=== PATIENT | female | born 1980 | race Caucasian/White ===

== ENCOUNTER 2016-12-03 21:42 | Emergency (ER) | payer MEDICARE, OTHER ==
[~2016-12-03] VITALS: Ht 152.4 cm; Wt 117.9 kg
[~2016-12-03 21:42] MED LIST: AMOX500C2 PO; CLAR500T PO; FURO40SO PO; INSU100V SQ; INSU10VI4 SQ; LIRA0.6P SQ; LISI-603 PO; METO25TA6 PO; METO50TA3 PO; METR-105 PO; NPH,100V2 SQ; OMEP40CA37 PO; ONDA-25 PO
[2016-12-03] MEDS ORDERED: DEXAMETHASONE SOD PHOSPHATE 10 MG/ML VIAL ONE (22:19)
[2016-12-03] MEDS ORDERED: ONDANSETRON 4 MG TAB.RAPDIS ONE (22:19)
[2016-12-03] MEDS ORDERED: ONDANSETRON 4 MG TAB.RAPDIS SL ONE (22:30)
[2016-12-03] MEDS ORDERED: DEXAMETHASONE SOD PHOSPHATE 4 MG/ML VIAL IM ONE (22:30)
[2016-12-03 23:14] VITALS: BP 175/73
== END 2016-12-03 23:15 | disposition home or self-care (01) ==
LOC: ER 21:45
DX: R11.0 Nausea (principal); J02.9 Acute pharyngitis, unspecified; E11.9 Type 2 diabetes mellitus without complications; I10 Essential (primary) hypertension; Z79.4 Long term (current) use of insulin; Z88.1 Allergy status to other antibiotic agents
CPT/HCPCS: A4606; J1100; Q0162; Z7610

== ENCOUNTER 2017-03-19 13:10 | Inpatient (IN) | payer MEDICARE, MEDICAID ==
[~2017-03-19] VITALS: Ht 149.9 cm; Wt 118.4 kg
--- NOTE | 2017-03-19 13:10 | NUR ---
PATIENT WAS ADVISED TO GO TO ED FOR HEPATITS PANEL FOR [facility] ACCEPTANCE. PT WAS NOT DIALYZED YESRTERDAY. HD SHUNT SHOWS NO ACTIVE BLEEDING. + BRUIT AND + THRILL
[2017-03-19 14:42] LABS: BASOPHILS # (AUTO) 0.3 /CMM (0.0-0.2); BASOPHILS % (AUTO) 2.7 % (0.0-2.0); EOSINOPHILS # (AUTO) 0.9 /CMM (0.0-0.7); EOSINOPHILS % (AUTO) 9.8 % (0.0-6.0); HEMATOCRIT 27 % (33-45); HEMOGLOBIN 8.9 g/dL (11.5-14.8); LYMPHOCYTES # (AUTO) 2.2 /CMM (0.8-4.8); LYMPHOCYTES % (AUTO) 22.7 % (20.0-44.0); MEAN CORPUSCULAR HEMOGLOBIN 34 PG (26.0-33.0); MEAN CORPUSCULAR HGB CONC 33 g/dl (31.0-36.0); MEAN CORPUSCULAR VOLUME 103 fL (82-100); MONOCYTES # (AUTO) 0.4 /CMM (0.1-1.30); MONOCYTES % (AUTO) 4.7 % (2.0-12.0); NEUTROPHILS # (AUTO) 5.8 /CMM (1.8-8.9); NEUTROPHILS % (AUTO) 60.1 % (43.0-81.0); PLATELET COUNT (AUTO) 300 /CMM (150-450); RDW COEFFICIENT OF VARIATION 14.4 (11.5-15.0); RED BLOOD CELL COUNT(AUTO) 2.62 MIL/uL (4.0-5.2); WHITE BLOOD COUNT (AUTO) 9.6 K/uL (4.3-11.0)
[2017-03-19 15:01] LABS: CALCIUM, SERUM 7.6 mg/dL (8.5-10.1); POTASSIUM 6.2 mmol/L (3.5-5.1)
[2017-03-19 15:03] LABS: CREATININE 12.9 mg/dL (0.6-1.3)
[2017-03-19] MEDS ORDERED: SODIUM POLYSTYRENE SULFONATE 15 G/60 ML BOTTLE ONE (15:16)
--- NOTE | 2017-03-19 15:16 | NUR ---
CALLED [facility] NEPHROLOGY DR BLUM WAS PAGED.
[2017-03-19] MEDS ORDERED: DEXTROSE 50%-WATER 50 ML DISP.SYRIN ONE (15:17)
[2017-03-19] MEDS ORDERED: INSULIN REGULAR, HUMAN 100 UNIT/ML 10 ML VIAL ONE (15:17)
[2017-03-19] MEDS ORDERED: FURO40TA5 PO (15:22)
[2017-03-19] MEDS ORDERED: EXEN2PEN SQ (15:22)
[2017-03-19] MEDS ORDERED: CLON0.1T PO (15:22)
[2017-03-19] MEDS ORDERED: CALC667C6 PO (15:22)
[2017-03-19] MEDS ORDERED: METO200T35 PO (15:22)
[2017-03-19] MEDS ORDERED: SEVE800T8 PO (15:22)
[2017-03-19] MEDS ORDERED: EZET10TA PO (15:22)
[2017-03-19] MEDS ORDERED: FOLI0.8T23 PO (15:23)
[2017-03-19] MEDS ORDERED: ALBUTEROL FS 2.5 MG/3 ML VIAL.NEB NEB ONE (15:30)
[2017-03-19] MEDS ORDERED: SODIUM POLYSTYRENE SULFONATE 15 G/60 ML BOTTLE PO ONE (15:30)
[2017-03-19] MEDS ORDERED: INSULIN REGULAR, HUMAN 100 UNIT/ML 10 ML VIAL IV ONE (15:30)
[2017-03-19] MEDS ORDERED: DEXTROSE 50%-WATER 50 ML DISP.SYRIN IV ONE (15:30)
[2017-03-19] MEDS ORDERED: ALBUTEROL FS 2.5 MG/3 ML VIAL.NEB ONE (15:41)
--- NOTE | 2017-03-19 15:42 | NUR ---
GABRIELLA RT AT [facility]
--- NOTE | 2017-03-19 15:49 | NUR ---
REPORT GIVEN TO ELIZABETH GUERRERO FOR DIEUDONNE
[2017-03-19 16:00] VITALS: BP 179/84
--- NOTE | 2017-03-19 16:04 | NUR ---
MS RN INITIAL NOTES REPORT RECEIVED FROM ER AND PATIENT IN THE ROOM. NO SOB OR DISTRESS NOTED AT THIS TIME. PATIENT DENIES PAIN. PATIENT ORIENTED TO ROOM AND CALL LIGHT. HISTORY TAKEN FROM PATIENT. PATIENT REFUSES A FULL SKIN ASSESSMENT, BUT STATES HER SKIN IS INTACT. PATIENT IS FULLY AMBULATORY AND ALERT. BED IN A LOW POSITION, CALL LIGHT WITHIN PATIENT REACH. WILL CONTINUE TO MONITOR.
[2017-03-19] MEDS: LISINOPRIL (20MG) 20 MG TABLET PO SCH (16:32)
[2017-03-19] MEDS: FUROSEMIDE 40 MG TABLET PO SCH (17:00)
[2017-03-19] MEDS ORDERED: DEXTROSE 50%-WATER 50 ML DISP.SYRIN IV PRN (17:00)
[2017-03-19] MEDS: METOPROLOL SUCCINATE 50 MG TAB.SR.24H PO SCH (17:05)
--- NOTE | 2017-03-19 17:07 | NUR ---
RN NOTES WILL HOLD EVENING BP MEDS AND LASIX PATIENT WILL HAVE DIALYSIS WITHIN THE HOUR.
[2017-03-19] MEDS: INSULIN REGULAR, HUMAN 100 UNIT/ML 3 ML VIAL SQ PRN ×2 (17:08→21:21)
[2017-03-19] MEDS: SEVELAMER CARBONATE 800 MG TABLET PO SCH (17:49)
[2017-03-19] MEDS: BLOOD SUGAR DIAGNOSTIC 1 EACH STRIP IN SCH ×2 (17:49→21:22)
[2017-03-19] MEDS: CALCIUM ACETATE 667 MG TABLET PO SCH (17:49)
[2017-03-19] MEDS: VIT B CMPLX 3/FA/VIT C/BIOTIN 1 TAB TABLET PO SCH (17:49)
--- NOTE | 2017-03-19 17:49 | NUR ---
ELIZABETH NOTES PATIENT CURRENTLY UNDERGOING DIALYSIS. WISHES TO EAT AND HAVE INSULIN AFTER TREATMENT. WILL HOLD UNTIL PATIENT EATS. Addendum: 03/19/17 at 1751 by YOLANDA MERINO RN DIALYSIS EXPECTED TO FINISH AFTER 1900. WILL ENDORSE INSULIN IF NOT ON THIS SHIFT.
[2017-03-19] MEDS ORDERED: CALCIUM ACETATE 667 MG TABLET PO SCH (18:00)
--- NOTE | 2017-03-19 18:52 | NUR ---
MS RN CLOSING NOTES NO SIGNIFICANT CHANGES IN PATIENT CONDITION. NO SOB OR DISTRESS NOTED AT THIS TIME. PATIENT DENIES PAIN. PATIENT STILL ON DIALYSIS. WILL ENDORSE INSULIN TO PENETRATION TESTER RN.
[2017-03-19 20:19] VITALS: BP 154/85
[2017-03-19] MEDS: INS LISP PROT/INS LISPRO 75/25 100 UNIT/ML VIAL SQ SCH (20:22)
--- NOTE | 2017-03-19 20:30 | NUR ---
MS RN NOTE: PATIENT RESTING IN BED, NO ACUTE DISTRESS NOTED. BREATHING EVEN AND UNLABORED, NO SOB NOTED. IV TO RIGHT HAND IN PLACE. DARINEL AV FISTULA IN PLACE, NO BLEEDING NOTED. PATIENT FINISHED DIALYSIS WITH 2 LITERS OUT. PATIENT BLOOD SUGAR LEVEL 333 MG/DL, PATIENT TO RECEIVE 30 UNITS OF HUMALOG 75/25 PER MD ORDER. PATIENT ALSO TO RECEIVE 8 UNITS OF INSULIN PER SLIDING SCALE. NO S/S OF HYPER/HYPOGLYCEMIA NOTED. BED LOCKED AND IN LOWEST POSITION, CALL LIGHT IN REACH. WILL CONTINUE TO MONITOR.
[2017-03-20] MEDS: BLOOD SUGAR DIAGNOSTIC 1 EACH STRIP IN SCH ×4 (07:30→21:15)
--- NOTE | 2017-03-20 07:30 | NUR ---
MS RN AM NOTES PT IN BED, ASLEEP, AROUSES TO NAME AND TOUCH, AOX4, ON RA, NOT IN ANY DISTRESS, NO SOB. DENIES PAIN. RT HAND G20 IV ACCESS FLUSHES WELL, SITE CLEAR. DARINEL AV FISTULA IN PLACE, THRILL PRESENT. ON CCHO/RENAL DIET. AMBULATES WITH ASSIST. CALL LIGHT WITHIN REACH. SAFETY MEASURES IN PLACE. WILL CONT TO MONITOR.
[2017-03-20 07:35] LABS: BASOPHILS % (AUTO) 0.4 % (0.0-2.0); EOSINOPHILS # (AUTO) 0.9 /CMM (0.0-0.7); EOSINOPHILS % (AUTO) 10.4 % (0.0-6.0); HEMATOCRIT 28 % (33-45); HEMOGLOBIN 9.2 g/dL (11.5-14.8); LYMPHOCYTES # (AUTO) 2.3 /CMM (0.8-4.8); LYMPHOCYTES % (AUTO) 25.6 % (20.0-44.0); MEAN CORPUSCULAR HEMOGLOBIN 35 PG (26.0-33.0); MEAN CORPUSCULAR HGB CONC 33 g/dl (31.0-36.0); MEAN CORPUSCULAR VOLUME 103 fL (82-100); MONOCYTES # (AUTO) 0.6 /CMM (0.1-1.30); MONOCYTES % (AUTO) 6.5 % (2.0-12.0); NEUTROPHILS # (AUTO) 5.2 /CMM (1.8-8.9); NEUTROPHILS % (AUTO) 57.1 % (43.0-81.0); PLATELET COUNT (AUTO) 265 /CMM (150-450); RDW COEFFICIENT OF VARIATION 14.9 (11.5-15.0); RED BLOOD CELL COUNT(AUTO) 2.66 MIL/uL (4.0-5.2)
[2017-03-20 07:41] LABS: CALCIUM, SERUM 7.8 mg/dL (8.5-10.1); PHOSPHORUS 5.7 mg/dL (2.5-4.9); POTASSIUM 4.4 mmol/L (3.5-5.1)
[2017-03-20 08:00] VITALS: BP 170/74
[2017-03-20] MEDS: INS LISP PROT/INS LISPRO 75/25 100 UNIT/ML VIAL SQ SCH ×3 (08:00→17:33)
[2017-03-20] MEDS: LISINOPRIL (20MG) 20 MG TABLET PO SCH (09:00)
[2017-03-20] MEDS: FUROSEMIDE 40 MG TABLET PO SCH ×2 (09:00→17:26)
--- NOTE | 2017-03-20 09:30 | NUR ---
MS RN NOTE ADMINISTERED DUE MED.
[2017-03-20 10:07] LABS: CREATININE 9.9 mg/dL (0.6-1.3)
[2017-03-20] MEDS: CLONIDINE HCL 0.1 MG TABLET PO SCH (10:07)
[2017-03-20] MEDS: VIT B CMPLX 3/FA/VIT C/BIOTIN 1 TAB TABLET PO SCH (10:07)
[2017-03-20] MEDS: CALCIUM ACETATE 667 MG TABLET PO SCH ×3 (10:08→17:27)
[2017-03-20] MEDS: SEVELAMER CARBONATE 800 MG TABLET PO SCH ×3 (10:08→17:27)
[2017-03-20] MEDS: EZETIMIBE 10 MG TABLET PO SCH (10:11)
[2017-03-20] MEDS ORDERED: EPOETIN ALFA (10,000 UNIT) 10,000 UNIT/ML VIAL IV ONE (11:00)
--- NOTE | 2017-03-20 11:15 | NUR ---
MS RN NOTES ACCUCHECK DONE. BS 125 MG/DL. NO INSULIN COVERAGE GIVEN AT THIS TIME.
[2017-03-20] MEDS ORDERED: ACETAMINOPHEN 325 MG TABLET PO PRN (11:30)
--- NOTE | 2017-03-20 11:41 | NUR ---
MS RN NOTES HD COMPLETED 1.2 LITER OUT. EPOGEN ADMINISTERED WITH HD PER DR. BLUM.
[2017-03-20 16:00] VITALS: BP 159/93
[2017-03-20] MEDS: METOPROLOL SUCCINATE 50 MG TAB.SR.24H PO SCH (17:27)
--- NOTE | 2017-03-20 17:31 | NUR ---
MS RN NOTES ACCUCHECK DONE. BS 247 MG/DL. ADMINISTERED SCHEDULED HUMALOG 30 UNITS + HUM R 4 UNITS PER SLIDING SCALE.
[2017-03-20] MEDS: INSULIN REGULAR, HUMAN 100 UNIT/ML 3 ML VIAL SQ PRN ×2 (17:34→21:21)
[2017-03-20 18:00] VITALS: BP 156/77
--- NOTE | 2017-03-20 18:38 | NUR ---
MS RN CLOSING NOTES PT RESTING IN BED, AAO X 4, ON RA, NOT IN ANY DISTRESS, NO SOB. DENIES PAIN. RT HAND G20 IV ACCESS FLUSHES WELL, SITE CLEAR. DARINEL AV FISTULA IN PLACE, THRILL PRESENT. ON CCHO/RENAL DIET. AMBULATES WITH ASSIST. ALL NEEDS MET. NO OTHER SIGNIFICANT CHANGE IN CONDITION. CALL LIGHT WITHIN REACH. SAFETY MEASURES IN PLACE. WILL ENDORSE TO NEXT SHIFT FOR DIEUDONNE.
--- NOTE | 2017-03-20 19:30 | NUR ---
MS NR OPENING NOTES: PATIENT IN BED, AOX4, ON ROOM AIR, BREATHING EVEN AND UNLABORED. BREATH SOUNDS CLEAR BUT DIMINISHED AT LOWER LUNG [place]. APPEARS CALM AND IN NO DISTRESS, DENIES PAIN. PIV OVER R HAND G 20 INTACT AND PATENT TO FLUSH. DARINEL AV FISTULA WITH PALPABLE THRILLS. PROVIDED FOR COMFORT AND SAFETY. WILL CONT TO MONITOR.
[2017-03-20 20:00] VITALS: BP 131/67
--- NOTE | 2017-03-20 21:50 | NUR ---
RN NOTES: PATIENT COMPLAINED OF NAUSEA, BUT WITHOUT VOMITING. SHE STATES HAVING ONE EPISODE OF VOMITING SMALL AMOUNT OF FOOD EARLIER AFTER DINNER. PATIENT STILL COMPLAINING OF NAUSEA. CALLED DR KOEHLER
--- NOTE | 2017-03-20 22:15 | NUR ---
RN NOTES: RECEIVED CALL BACK FROM DR KOEHLER, ORDERED FOR ZOFRAN 4 MG IV PRN FOR NAUSEA AND VOMITING.
[2017-03-20] MEDS ORDERED: ONDANSETRON HCL/PF 4 MG/2 ML VIAL ONE (22:29)
[2017-03-20] MEDS ORDERED: ONDANSETRON HCL/PF 4 MG/2 ML VIAL IV PRN (22:30)
--- NOTE | 2017-03-21 06:00 | NUR ---
RN NOTES: BLOOD SUGAR CHECKED AT 122 MG/DL. NO INSULIN COVERAGE NEEDED AT THIS TIME.
[2017-03-21] MEDS: BLOOD SUGAR DIAGNOSTIC 1 EACH STRIP IN SCH ×2 (06:47→11:57)
--- NOTE | 2017-03-21 06:49 | NUR ---
MS RN CLOSING NOTES: PATIENT IN BED, AOX4, ON ROOM AIR, BREATHING EVEN AND UNLABORED. APPEARS CALM AND IN NO DISTRESS. DARINEL AV FISTULA WITH PALPABLE THRILLS PRESENT. R HAND G 20 INTACT AND PATENT TO FLUSH. DUE MEDS GIVEN. PROVIDED FOR COMFORT AND SAFETY. WILL ENDORSE TO AM RN FOR DIEUDONNE.
--- NOTE | 2017-03-21 07:50 | NUR ---
RN MS NOTES RECEIVED PATIENT IN BED, NO APPARENT DISTRESS NOTED, DENIES PAIN, DENIES SOB. RIGHT HAND IV PATENT, DARINEL FISTULA PATENT. ALL NEEDS MET, CALL LIGHT WITHIN REACH.
[2017-03-21 08:00] VITALS: BP 126/92
[2017-03-21] MEDS: EZETIMIBE 10 MG TABLET PO SCH (08:32)
[2017-03-21] MEDS: CALCIUM ACETATE 667 MG TABLET PO SCH ×2 (08:32→12:33)
[2017-03-21] MEDS: FUROSEMIDE 40 MG TABLET PO SCH (08:32)
[2017-03-21] MEDS: CLONIDINE HCL 0.1 MG TABLET PO SCH (08:32)
[2017-03-21] MEDS: VIT B CMPLX 3/FA/VIT C/BIOTIN 1 TAB TABLET PO SCH (08:32)
[2017-03-21] MEDS: SEVELAMER CARBONATE 800 MG TABLET PO SCH ×2 (08:32→12:33)
[2017-03-21 08:33] VITALS: BP 126/92
[2017-03-21] MEDS: LISINOPRIL (20MG) 20 MG TABLET PO SCH (08:33)
[2017-03-21] MEDS: INS LISP PROT/INS LISPRO 75/25 100 UNIT/ML VIAL SQ SCH ×2 (09:19→12:36)
[2017-03-21] MEDS: INSULIN REGULAR, HUMAN 100 UNIT/ML 3 ML VIAL SQ PRN (11:59)
--- NOTE | 2017-03-21 14:30 | NUR ---
ELIZABETH MS CLOSING NOTES PATIENT LEFT IN STABLE CONDITION VIA PRIVATE CAR. NO APPARENT DISTRESS NOTED, DENIES PAIN, DENIES SOB. ALL DUE MEDS GIVEN ALL NEEDS MET. DISCHARGE INSTRUCTIONS REVIEWED WITH PATIENT, SHE SATED UNDERSTANDING. MEDICATIONS REVIEWED WITH PATIENT WITH EDUCATION PROVIDED. SKIN CLEAR AND INTACT, IV LINE DISCONTINUED. EXIT CARE UTILIZED TO PROVIDE EDUCATIONAL MATERIAL. Addendum: 03/21/17 at 1450 by MOODY PONCE RN DARINEL FISTULA PATENT,BRUIT AND THRILL HEARD UPON AUSCULTATION
[2017-03-25] MEDS ORDERED: BYDUREON SQ SCH (09:00)
== END 2017-03-21 15:00 | disposition home or self-care (01) | DRG 682 ==
LOC: ER 13:13 → TELE 15:48 → MED 18:04
PROVIDERS: ADMIT Internal Medicine Nephrology; ATTEND Internal Medicine Nephrology
PROC: 5A1D60Z (ICD-10-PCS; principal; 2017-03-19)
DX: I13.11 Hypertensive heart and chronic kidney disease without heart failure, with stage 5 chronic kidney disease, or end stage renal disease (principal); N18.6 End stage renal disease; Z68.43 Body mass index [BMI] 50.0-59.9, adult; J81.1 Chronic pulmonary edema; E87.5 Hyperkalemia; Z86.19 Personal history of other infectious and parasitic diseases; Z88.1 Allergy status to other antibiotic agents; E11.22 Type 2 diabetes mellitus with diabetic chronic kidney disease; Z99.2 Dependence on renal dialysis; E66.01 Morbid (severe) obesity due to excess calories; D64.9 Anemia, unspecified; E78.5 Hyperlipidemia, unspecified; E83.51 Hypocalcemia; K21.9 Gastro-esophageal reflux disease without esophagitis; Z79.4 Long term (current) use of insulin; Z79.899 Other long term (current) drug therapy; M85.80 Other specified disorders of bone density and structure, unspecified site; Z91.15 Patient's noncompliance with renal dialysis
CPT/HCPCS: 36415; 71010-TC; 80048-TC; 80074; 82962-TC; 83540-TC; 84100-TC; 85025-TC; 87081-TC; 90935-TC; 93307-TC; A4606; A6402; J0885; J1815; J2405; Z7610

== ENCOUNTER 2017-04-24 10:59 | Emergency (ER) | payer MEDICARE, MEDICAID ==
[~2017-04-24] VITALS: Ht 149.9 cm; Wt 110.2 kg
[~2017-04-24 10:59] MED LIST changes: -AMOX500C2 PO; +CALC667C6 PO; -CLAR500T PO; +CLON0.1T PO; +EXEN2PEN SQ; +EZET10TA PO; +FOLI0.8T23 PO; -FURO40SO PO; +FURO40TA5 PO; -INSU100V SQ; -LIRA0.6P SQ; +METO200T35 PO; -METO25TA6 PO; -METO50TA3 PO; -METR-105 PO; -NPH,100V2 SQ; -OMEP40CA37 PO; -ONDA-25 PO; +SEVE800T8 PO
--- NOTE | 2017-04-24 10:59 | NUR ---
BB SELF C/O N/V X3 DAYS AND MIGRAINE X1 MONTH PROBATE CLERK. WENT TO PCP YESTERDAY GIVEN REGLAN NOT EFFECTIVE. ESRD ON DIALYSIS. PLACED ON MONITOR. AWAITING MD ORDER
[2017-04-24] MEDS ORDERED: ONDANSETRON HCL/PF 4 MG/2 ML VIAL IVP ONE (11:30)
[2017-04-24] MEDS ORDERED: IV NS 0.9% 500 ML BAG IV ONE (11:30)
--- NOTE | 2017-04-24 11:33 | NUR ---
URINE SAMPLE COLLECTED SENT TO LAB
--- NOTE | 2017-04-24 11:40 | NUR ---
BLOOD SAMPLE COLLECTED SENT TO LAB
--- NOTE | 2017-04-24 11:48 | NUR ---
EKG IN PROGRESS
[2017-04-24 11:51] LABS: BASOPHILS # (AUTO) 0.1 /CMM (0.0-0.2); BASOPHILS % (AUTO) 0.6 % (0.0-2.0); EOSINOPHILS # (AUTO) 0.8 /CMM (0.0-0.7); EOSINOPHILS % (AUTO) 8.8 % (0.0-6.0); HEMATOCRIT 30 % (33-45); HEMOGLOBIN 9.8 g/dL (11.5-14.8); LYMPHOCYTES # (AUTO) 1.6 /CMM (0.8-4.8); LYMPHOCYTES % (AUTO) 17.5 % (20.0-44.0); MEAN CORPUSCULAR HEMOGLOBIN 34 PG (26.0-33.0); MEAN CORPUSCULAR HGB CONC 33 g/dl (31.0-36.0); MEAN CORPUSCULAR VOLUME 102 fL (82-100); MONOCYTES # (AUTO) 0.5 /CMM (0.1-1.30); MONOCYTES % (AUTO) 5.5 % (2.0-12.0); NEUTROPHILS # (AUTO) 6.1 /CMM (1.8-8.9); NEUTROPHILS % (AUTO) 67.6 % (43.0-81.0); PLATELET COUNT (AUTO) 213 /CMM (150-450); RDW COEFFICIENT OF VARIATION 14.2 (11.5-15.0); RED BLOOD CELL COUNT(AUTO) 2.89 MIL/uL (4.0-5.2); WHITE BLOOD COUNT (AUTO) 9.1 K/uL (4.3-11.0)
[2017-04-24 12:03] LABS: CALCIUM, SERUM 7.6 mg/dL (8.5-10.1); POTASSIUM 5.8 mmol/L (3.5-5.1)
[2017-04-24 12:04] LABS: CREATININE 14.3 mg/dL (0.6-1.3)
[2017-04-24 12:07] LABS: INR 1.01 (0.87-1.13); PROTHROMBIN TIME 10.5 SECS (9.5-12.7)
[2017-04-24 12:08] LABS: ALBUMIN 3.3 g/dL (3.4-5.0); BILIRUBIN,DIRECT 0.1 mg/dL (0.0-0.2); BILIRUBIN,TOTAL 0.3 mg/dL (0.2-1.0); TOTAL PROTEIN, SERUM 7.2 g/dL (6.4-8.2)
[2017-04-24] MEDS ORDERED: ONDANSETRON 4 MG TAB.RAPDIS ONE ×2 (12:10→13:30)
--- NOTE | 2017-04-24 12:11 | NUR ---
UNABLE TO START IV ACCESS DUE TO HARDSTICK VERBAL ORDER FROM DR CAMP GIVE ZOFRAN 4MG ODT .
[2017-04-24 12:13] LABS: TROPONIN I 0.159 ng/mL (0.00-0.056)
--- NOTE | 2017-04-24 12:14 | NUR ---
PT TAKEN TO CT
[2017-04-24] MEDS ORDERED: ONDANSETRON 4 MG TAB.RAPDIS SL ONE ×2 (12:30→13:30)
[2017-04-24] MEDS ORDERED: CLONIDINE HCL 0.1 MG TABLET ONE (13:29)
[2017-04-24] MEDS ORDERED: IBUPROFEN 600 MG TABLET PO ONE ×2 (13:29→13:30)
[2017-04-24] MEDS ORDERED: CLONIDINE HCL 0.1 MG TABLET PO ONE (13:30)
--- NOTE | 2017-04-24 13:34 | NUR ---
Patient discharged to home in stable condition. Written and verbal after care instructions given. Patient verbalizes understanding of instruction.
[2017-04-24 13:35] VITALS: BP 164/83
== END 2017-04-24 13:36 | disposition home or self-care (01) ==
LOC: ER 11:03
DX: I12.0 Hypertensive chronic kidney disease with stage 5 chronic kidney disease or end stage renal disease (principal); N18.6 End stage renal disease; R51 Headache; R11.0 Nausea; E11.22 Type 2 diabetes mellitus with diabetic chronic kidney disease; Z90.49 Acquired absence of other specified parts of digestive tract; Z79.4 Long term (current) use of insulin; Z99.2 Dependence on renal dialysis
CPT/HCPCS: 36415; 71250-TC; 80048-TC; 80076-TC; 83690-TC; 84484-TC; 84703-TC; 85025-TC; 85730-TC; A4606; L0172; Q0162; Z7610

== ENCOUNTER 2017-06-23 11:50 | Inpatient (IN) | payer MEDICARE, MEDICAID ==
[~2017-06-23] VITALS: Ht 152.4 cm; Wt 109.8 kg
--- NOTE | 2017-06-23 12:00 | NUR ---
Bib self, c/o Nausea and Vomitting since this AM, denies pain feels hot and sweaty. Last dialized on , nad noted, vss, resp even and unlabored. put on hospital gown and monitor. waiting for md sauer.
[2017-06-23] MEDS ORDERED: ONDANSETRON HCL/PF 4 MG/2 ML VIAL ONE ×2 (12:25→13:21)
[2017-06-23] MEDS ORDERED: ONDANSETRON HCL/PF 4 MG/2 ML VIAL IVP ONE (12:30)
[2017-06-23] MEDS ORDERED: IV NS 0.9% 500 ML BAG IV ONE (12:30)
--- NOTE | 2017-06-23 12:50 | NUR ---
URINE SENT TO LAB
[2017-06-23 13:17] LABS: APPEARANCE,URINE CLEAR (CLEAR); BILIRUBIN,URINE NEGATIVE (NEGATIVE); BLOOD, URINE 1+ Ery/uL (NEGATIVE); COLOR,URINE YELLOW (YELLOW); KETONES,URINE NEGATIVE (NEGATIVE); LEUKOCYTE ESTERASE ,URINE NEGATIVE (NEGATIVE); NITRITE, URINE NEGATIVE (NEGATIVE); PROTEIN,URINE 3+ mg/dl (NEGATIVE); UGLUCOSE 1+ mg/dL (NEGATIVE); UROBILINOGEN,URINE 0.2 EU/dL (0.2)
[2017-06-23] MEDS ORDERED: CLONIDINE HCL 0.1 MG TABLET ONE (13:21)
[2017-06-23 13:23] LABS: RBC,URINE 0-2 /HPF (0-2)
[2017-06-23 13:24] LABS: BACTERIA,URINE Few /HPF (None Seen); SQUAMOUS EPITHELIAL CELL,UR Moderate /HPF (None Seen)
[2017-06-23] MEDS ORDERED: ONDANSETRON HCL/PF 4 MG/2 ML VIAL IM ONE (13:30)
[2017-06-23] MEDS ORDERED: CLONIDINE HCL 0.1 MG TABLET PO ONE (13:30)
--- NOTE | 2017-06-23 13:38 | NUR ---
DR ROSEN SUGGESTED LAB TO DRAW FROM HER FOOT BUT PATIENT REFUSED SAYING THAT SHE IS DIABETIC
[2017-06-23 14:20] LABS: BASOPHILS % (AUTO) 0.4 % (0.0-2.0); EOSINOPHILS # (AUTO) 0.3 /CMM (0.0-0.7); EOSINOPHILS % (AUTO) 3.2 % (0.0-6.0); HEMATOCRIT 29 % (33-45); HEMOGLOBIN 9.6 g/dL (11.5-14.8); LYMPHOCYTES # (AUTO) 1.5 /CMM (0.8-4.8); MEAN CORPUSCULAR HEMOGLOBIN 34 PG (26.0-33.0); MEAN CORPUSCULAR HGB CONC 33 g/dl (31.0-36.0); MEAN CORPUSCULAR VOLUME 103 fL (82-100); MONOCYTES # (AUTO) 0.4 /CMM (0.1-1.30); MONOCYTES % (AUTO) 3.9 % (2.0-12.0); NEUTROPHILS # (AUTO) 7.9 /CMM (1.8-8.9); NEUTROPHILS % (AUTO) 77.5 % (43.0-81.0); PLATELET COUNT (AUTO) 304 /CMM (150-450); RDW COEFFICIENT OF VARIATION 14.2 (11.5-15.0); RED BLOOD CELL COUNT(AUTO) 2.81 MIL/uL (4.0-5.2); WHITE BLOOD COUNT (AUTO) 10.1 K/uL (4.3-11.0)
[2017-06-23 14:37] LABS: ALBUMIN 3.2 g/dL (3.4-5.0); BILIRUBIN,DIRECT 0.1 mg/dL (0.0-0.2); BILIRUBIN,TOTAL 0.5 mg/dL (0.2-1.0); CALCIUM, SERUM 8.2 mg/dL (8.5-10.1)
[2017-06-23 14:45] LABS: POTASSIUM 6.7 mmol/L (3.5-5.1)
[2017-06-23] MEDS ORDERED: SODIUM POLYSTYRENE SULFONATE 15 G/60 ML BOTTLE ONE (14:52)
--- NOTE | 2017-06-23 14:52 | NUR ---
Paged Dr. Salazar (web content executive for Dr. Talbot)
--- NOTE | 2017-06-23 14:58 | NUR ---
WAITING FOR MIDLINE INSERTION, IV FLUIDS AND ZOFRAN DC BY . ZOFRAN GIVEN VIA IM INSTEAD.
[2017-06-23] MEDS ORDERED: SODIUM POLYSTYRENE SULFONATE 15 G/60 ML BOTTLE PO ONE (15:00)
[2017-06-23 15:08] LABS: TROPONIN I 0.15 ng/mL (0.00-0.056)
[2017-06-23] MEDS ORDERED: LISI40TA4 PO (15:21)
[2017-06-23] MEDS ORDERED: CINA30TA PO (15:21)
[2017-06-23] MEDS ORDERED: CLON0.2T PO (15:21)
--- NOTE | 2017-06-23 16:00 | NUR ---
RN OPENING NOTES PT BROUGHT TO ROOM 116-1 FROM ER. REPORT GIVEN BY ELIZABETH TRIMBLE. PT AOX4. ADMITTED FOR HYPERKALEMIA. PATIENT TO BE SEEN BY HD RN FOR HD. KAYEXELATE GIVEN TWICE. K+ 6.7. PATIENT TO BE HAVE MIDLINE PLACEMENT. RESPIRATIONS EVEN AND UNLABORED. NO ACUTE DISTRESS. DENIES PAIN. DENIES SOB. NO CP. NO IV ACCESS. BED LOCKED IN THE LOWEST POSITION WITH SIDE RAILS X2. WILL CONTINUE TO MONITOR AND ASSESS PATIENT THROUGHOUT SHIFT.
--- NOTE | 2017-06-23 16:15 | NUR ---
RN NOTES HD RN AT BED SIDE. NOTIFED DR. JUNIOR OF PATIENT ADMISSION. ORDERS FOR RENAL STANDARD DIET. CBC, BMP IN THE AM. CONTINUE TO ALL HOME MEDS. WILL CARRY OUT ORDERED.
[2017-06-23 17:00] VITALS: BP 170/75
--- NOTE | 2017-06-23 19:20 | NUR ---
RN CLOSING NOTES PATIENT RESTING COMFORTABLY IN BED. MEDICATIONS CONTINUED AND WILL ENDORSE TO NIGHT RN TO ADMINISTER. NO IV ACCESS. NO MIDLINE PLACED. NOT PLACED PER HIGH SCHOOL SPORTS COACH KYE Blanco PT IS NOT RECEIVING ANY MEDICATION VIA IV. DENIES CP, SOB OR ANY PAIN. 1 L REMOVED DURING HD. ALL NEEDS MET. ALL MEDS GIVEN ASS APPROPRIATE. WILL. WILL ENDORSE TO NIGHT RN FOR DIEUDONNE.
[2017-06-23 20:00] VITALS: BP 145/60
[2017-06-23] MEDS ORDERED: CLONIDINE HCL 0.2 MG TABLET PO SCH (20:00)
--- NOTE | 2017-06-23 20:00 | NUR ---
RN NOTES RECEIVED PT AWAKE ON BED, A/OX4, NO IV ACCESS,. WAITING FOR MIDLINE TO BE PLACED, PT. IS CRANKY AND DOESN'T WANT TO BE DISTURBED , DENIES PAIN, NO SOB, CALL LIGHT WITHIN REACH, SIDERAILS UPX2, CONTINUE TO MONITOR
[2017-06-23] MEDS: CLONIDINE HCL 0.1 MG TABLET PO SCH (20:48)
[2017-06-23] MEDS: CALCIUM ACETATE 667 MG TABLET PO SCH (20:48)
[2017-06-23] MEDS: FUROSEMIDE 40 MG TABLET PO SCH (20:48)
--- NOTE | 2017-06-23 21:00 | NUR ---
RN NOTES PT TOOK ALL HER MEDICATION , SR ON TELE MONITOR [id number]
--- NOTE | 2017-06-23 21:30 | NUR ---
RN NOTES PT REFUSED TO HAVE HER V/S TAKEN @ MIDNIGHT
[2017-06-24 06:49] LABS: BASOPHILS # (AUTO) 0.1 /CMM (0.0-0.2); BASOPHILS % (AUTO) 0.8 % (0.0-2.0); EOSINOPHILS # (AUTO) 0.3 /CMM (0.0-0.7); EOSINOPHILS % (AUTO) 4.3 % (0.0-6.0); HEMATOCRIT 26 % (33-45); HEMOGLOBIN 8.7 g/dL (11.5-14.8); LYMPHOCYTES # (AUTO) 1.4 /CMM (0.8-4.8); LYMPHOCYTES % (AUTO) 21.3 % (20.0-44.0); MEAN CORPUSCULAR HEMOGLOBIN 34 PG (26.0-33.0); MEAN CORPUSCULAR HGB CONC 33 g/dl (31.0-36.0); MEAN CORPUSCULAR VOLUME 102 fL (82-100); MONOCYTES # (AUTO) 0.5 /CMM (0.1-1.30); MONOCYTES % (AUTO) 7.4 % (2.0-12.0); NEUTROPHILS # (AUTO) 4.5 /CMM (1.8-8.9); NEUTROPHILS % (AUTO) 66.2 % (43.0-81.0); PLATELET COUNT (AUTO) 225 /CMM (150-450); RDW COEFFICIENT OF VARIATION 14.9 (11.5-15.0); RED BLOOD CELL COUNT(AUTO) 2.56 MIL/uL (4.0-5.2); WHITE BLOOD COUNT (AUTO) 6.8 K/uL (4.3-11.0)
[2017-06-24 07:01] LABS: CALCIUM, SERUM 8.2 mg/dL (8.5-10.1); POTASSIUM 4.6 mmol/L (3.5-5.1)
[2017-06-24 07:02] LABS: CREATININE 9.4 mg/dL (0.6-1.3)
[2017-06-24] MEDS: CLONIDINE HCL 0.1 MG TABLET PO SCH ×3 (07:14→17:45)
--- NOTE | 2017-06-24 07:20 | NUR ---
RN NOTES CLONIDINE 0.2MG PO GIVEN .. PT BP 172/88 AND COMPLAINING OF HEADACHE
--- NOTE | 2017-06-24 07:21 | NUR ---
RN NOTES AWAKE, MONRING CARE RENDERED, PT. NEEDS ATTENDED
--- NOTE | 2017-06-24 07:25 | NUR ---
RN notes Received pt awake,verbally responsive, on room air,no SOB noted. Denies any pain or discomfort at this time. Call light within reach. No IV access at this time, awaiting for midline placement Lt arm AV fistula positive bruit and thrill Will continue to monitor accordingly, Safety measures in place.
[2017-06-24 08:00] VITALS: BP 135/68
[2017-06-24] MEDS: FUROSEMIDE 40 MG TABLET PO SCH ×3 (08:54→19:34)
[2017-06-24] MEDS: SEVELAMER CARBONATE 800 MG TABLET PO SCH ×4 (08:54→19:34)
[2017-06-24] MEDS: CALCIUM ACETATE 667 MG TABLET PO SCH ×4 (08:54→19:34)
[2017-06-24] MEDS: LISINOPRIL (20MG) 20 MG TABLET PO SCH (08:55)
[2017-06-24] MEDS: CINACALCET HCL 30 MG TABLET PO SCH (10:00)
[2017-06-24] MEDS: METOPROLOL SUCCINATE 50 MG TAB.SR.24H PO SCH (10:01)
[2017-06-24] MEDS: INS LISP PROT/INS LISPRO 75/25 100 UNIT/ML VIAL SQ SCH ×3 (10:02→18:00)
[2017-06-24] MEDS ORDERED: EPOETIN ALFA (10,000 UNIT) 10,000 UNIT/ML VIAL SQ ONE (11:30)
[2017-06-24] MEDS ORDERED: INSULIN REGULAR, HUMAN 100 UNIT/ML 3 ML VIAL SQ PRN (11:30)
[2017-06-24] MEDS ORDERED: DEXTROSE 50%-WATER 50 ML DISP.SYRIN IV PRN (11:30)
[2017-06-24] MEDS ORDERED: hydrALAZINE HCL 25 MG TABLET PO PRN (11:30)
--- NOTE | 2017-06-24 12:00 | NUR ---
ms rn notes pt refused her regular insulin offered x 3 explained refused
[2017-06-24] MEDS: BLOOD SUGAR DIAGNOSTIC 1 EACH STRIP IN SCH ×3 (12:36→21:49)
--- NOTE | 2017-06-24 15:00 | NUR ---
ms rn notes pt requested her blood glucose to be checked noted reading 33. Rechecked 35, MD notified. Pt refused midline access , apple juice with sugar given ,rechecked 80. Will continue to monitor. pt is alert, awake, verbally responsive
[2017-06-24 16:00] VITALS: BP 171/76
--- NOTE | 2017-06-24 17:00 | NUR ---
MS RN NOTES AT 1700 BS 80, PT REFUSED INSULIN HUMALOG MIX75/25 -30 UNITS, NOT ADMINISTERED
--- NOTE | 2017-06-24 17:30 | NUR ---
MS RN NOTES PT CURRENTLY ON DYALYSIS,REFUSED LASIX 40MG, PHOSLO 667MG, RENAGEL 3200MG, STATED "I WILL TAKE THEM AFTER DYALYSIS WITH MY DINNER" ENDORSED TO THE RAILROAD WATCHMAN
[2017-06-24] MEDS ORDERED: Exenatide Microspheres (Bydureon Pen) 2 MG SQ SCH (18:00)
--- NOTE | 2017-06-24 18:58 | NUR ---
RN notes pt awake,verbally responsive, on room air ,no SOB noted. Denies any pain or discomfort at this time. Call light within reach. no IV site at this time pt refused midline insertion md aware.Will continue to monitor accordingly,and endorse to next shift for continuity of care, currently on dialysis treatment shu continue to monitor, patient wants to have dinner after dialysis phoslo lasix and renagel to be given with meal will endorse to next shift Safety measures in place.
--- NOTE | 2017-06-24 19:30 | NUR ---
rn note; RECEIVED PT IN ROOM AWAKE AND ALERT, S/P HD W/ NO COMPLICATIONS. BREATHING EVENLY. NO SOB. NAD. SR ON TELE MONITOR. SKIN WARM AND DRY. HD SITE W/ INTACT DRESSING. NO BLEEDING. NO C/O PAIN OR DISCOMFORT, NO S/S OF HYPO OR HYPERGLYCEMIA AT THIS TIME. REFUSED IV INSERTION. PT WAS ADVISED TO HAVE A HS SNACK TO PREVENT HYPOGLYCEMIA EPISODE W/ UNDERSTANDING. NEEDS ATTENDED, CALL LIGHT WITHIN REACH. WILL CONT TO MONITOR
--- NOTE | 2017-06-24 19:35 | NUR ---
RN NOTES DIALYSIS TREATMENT COMPLETE PT GIVEN MEAL AND PHOSLO RENAGEL AND LASIX AT THIS TIME REQUESTED NEXT SHIFT AWARE, WILL CONTINUE TO MONITOR
[2017-06-24 20:00] VITALS: BP 145/68
[2017-06-24 21:00] VITALS: BP 145/67
--- NOTE | 2017-06-25 00:30 | NUR ---
FABRICATION OPERATOR REPORTED HIGH BP OF SBP>160 . PT WAS SEEN SLEEPING IN BED . ASKED PT TO RECHECK HER BP FOR POSSIBLE PRN BP MEDICATION. PT REFUSED RECHECKING TH BP AND TAKING MEDICATION, STATED " LET ME SLEEP, DON'T ARGUE WITH ME" PT DENIED ANY PAIN O R DISCOMFORT AT THIS TIME. ON ONGOING TELE MONITORING. WILL CONT TO MONITOR
[2017-06-25 00:41] VITALS: BP 165/82
--- NOTE | 2017-06-25 06:21 | NUR ---
RN NOTE; PT IN BED SLEEPING, AROUSES EASILY. NO ACUTE CHANGES OVER THE NIGHT. W/ EPISODES OF NON- COMPLIANCE . REFUSED VITAL SIGN CHECK AT 0400. TELE MONITOR IN PLACE READING SR RATE: 76. NEEDS ATTENDED. BED LOW LOCKED. CALL LIGHT WITHIN REACH. WILL CONT TO MONITOR AND FRANK ENDORSE TO AM SHIFT FOR DIEUDONNE.
[2017-06-25] MEDS: BLOOD SUGAR DIAGNOSTIC 1 EACH STRIP IN SCH ×2 (06:56→12:06)
[2017-06-25 08:00] VITALS: BP 156/86
[2017-06-25] MEDS: INS LISP PROT/INS LISPRO 75/25 100 UNIT/ML VIAL SQ SCH ×2 (08:00→12:10)
[2017-06-25] MEDS: CINACALCET HCL 30 MG TABLET PO SCH (08:26)
[2017-06-25] MEDS: LISINOPRIL (20MG) 20 MG TABLET PO SCH (08:27)
[2017-06-25] MEDS: CLONIDINE HCL 0.1 MG TABLET PO SCH ×2 (08:27→12:06)
[2017-06-25] MEDS: FUROSEMIDE 40 MG TABLET PO SCH (08:27)
[2017-06-25] MEDS: CALCIUM ACETATE 667 MG TABLET PO SCH ×2 (08:27→12:05)
[2017-06-25] MEDS: SEVELAMER CARBONATE 800 MG TABLET PO SCH ×2 (08:27→12:05)
[2017-06-25] MEDS: METOPROLOL SUCCINATE 50 MG TAB.SR.24H PO SCH (08:27)
[2017-06-25 13:15] VITALS: BP 155/70
--- NOTE | 2017-06-25 13:48 | NUR ---
HOUSEKEEPER CLEANING COOKING NOTES DISCHARGE INSTRUCTIONS GIVEN TO PATIENT ALONG WITH INSTRUCTIONS TO FOLLOW UP AT HER DIALYSIS CLINIC. ALL PAPERWORK SIGNED AND BELONGINGS ACCOUNTED FOR. PT DID NOT HAVE IV ACCESS. BLOOD PRESSURE RECHECKED AND WITHIN NORMAL PT BASELINE. FLU SHOT NOT GIVEN PATIENT STATES SHE ALREADY HAD IT THIS SEASON. PATIENT LEFT IN STABLE CONDITION, AMBULATORY, TO HOME. NO SOB OR DISTRESS, PATIENT DENIES PAIN.
== END 2017-06-25 13:34 | disposition home or self-care (01) | DRG 682 ==
LOC: ER 12:01 → TELE 15:29 → MED 06-25 10:12
PROVIDERS: ADMIT Internal Medicine; ATTEND Internal Medicine Nephrology
PROC: 5A1D70Z Performance of Urinary Filtration, Intermittent, Less than 6 Hours Per Day (ICD-10-PCS; principal; 2017-06-23)
DX: I12.0 Hypertensive chronic kidney disease with stage 5 chronic kidney disease or end stage renal disease (principal); N18.6 End stage renal disease; E11.22 Type 2 diabetes mellitus with diabetic chronic kidney disease; E78.5 Hyperlipidemia, unspecified; K21.9 Gastro-esophageal reflux disease without esophagitis; Z79.4 Long term (current) use of insulin; E87.5 Hyperkalemia; Z99.2 Dependence on renal dialysis; Z79.899 Other long term (current) drug therapy; M85.80 Other specified disorders of bone density and structure, unspecified site; D64.9 Anemia, unspecified; Z88.1 Allergy status to other antibiotic agents; K29.70 Gastritis, unspecified, without bleeding; Z90.49 Acquired absence of other specified parts of digestive tract
CPT/HCPCS: 36415; 80048-TC; 80076-TC; 81000-TC; 82962-TC; 83690-TC; 84484-TC; 84703-TC; 85025-TC; 87081-TC; 87086-TC; 90935-TC; J0885; J1815; J2405; J7040

== ENCOUNTER 2017-09-16 21:22 | Emergency (ER) | payer MEDICARE, MEDICAID ==
[~2017-09-16] VITALS: Ht 149.9 cm; Wt 102.1 kg
[~2017-09-16 21:22] MED LIST changes: +CINA30TA2 PO; -CLON0.1T PO; +CLON0.2T PO; -EZET10TA PO; -FOLI0.8T23 PO; -LISI-603 PO; +LISI40TA4 PO; -METO200T35 PO; +METO200T5 PO
[2017-09-16 21:37] VITALS: BP 151/90
[2017-09-16 22:44] LABS: APPEARANCE,URINE CLOUDY (CLEAR); BILIRUBIN,URINE NEGATIVE (NEGATIVE); BLOOD, URINE TRACE-INTA Ery/uL (NEGATIVE); COLOR,URINE YELLOW (YELLOW); KETONES,URINE NEGATIVE (NEGATIVE); LEUKOCYTE ESTERASE ,URINE NEGATIVE (NEGATIVE); NITRITE, URINE NEGATIVE (NEGATIVE); PH,URINE 7.5 (5.0-8.0); PROTEIN,URINE 3+ mg/dl (NEGATIVE); UGLUCOSE 1+ mg/dL (NEGATIVE); UROBILINOGEN,URINE 0.2 EU/dL (0.2)
[2017-09-16 22:50] LABS: BACTERIA,URINE Rare /HPF (None Seen); SQUAMOUS EPITHELIAL CELL,UR Many /HPF (None Seen); WBC,URINE 0-2 /HPF (0-3)
== END 2017-09-16 23:23 | disposition home or self-care (01) ==
LOC: ER 21:22
DX: R10.9 Unspecified abdominal pain (principal); E11.9 Type 2 diabetes mellitus without complications; Z79.4 Long term (current) use of insulin; Z99.2 Dependence on renal dialysis; Z88.1 Allergy status to other antibiotic agents
CPT/HCPCS: 81000-TC; A4606; Z7610

== ENCOUNTER 2017-11-05 11:48 | Inpatient (IN) | payer MEDICARE, MEDICAID ==
[~2017-11-05] VITALS: Ht 149.9 cm; Wt 101.8 kg
[~2017-11-05 11:48] MED LIST changes: +METO200T49 PO; -METO200T5 PO
--- NOTE | 2017-11-05 12:00 | NUR ---
PT AMBULATORY TO ER BED 16. C/O GENERALIZED WEAKNESS FOR DAYS NOW. PT STATES DIALYZED YESTERDAY AND STILL NOT FEELING WELL. GOWNED AND PLACED ON MONITOR. AWAITING MD COSTA.
--- NOTE | 2017-11-05 12:17 | NUR ---
DE GENAO AT BEDSIDE FOR EVAL.
--- NOTE | 2017-11-05 12:27 | NUR ---
IV LINE STARTED BLOOD DRAWN AND SENT TO LAB.
[2017-11-05] MEDS ORDERED: FAMOTIDINE/PF INJ 20 MG/2 ML VIAL IV ONE ×2 (12:30)
[2017-11-05 12:31] LABS: BASOPHILS % (AUTO) 0.5 % (0.0-2.0); EOSINOPHILS # (AUTO) 0.4 /CMM (0.0-0.7); EOSINOPHILS % (AUTO) 4.3 % (0.0-6.0); HEMATOCRIT 25 % (33-45); HEMOGLOBIN 8.5 g/dL (11.5-14.8); LYMPHOCYTES # (AUTO) 1.8 /CMM (0.8-4.8); LYMPHOCYTES % (AUTO) 21.7 % (20.0-44.0); MEAN CORPUSCULAR HEMOGLOBIN 34 PG (26.0-33.0); MEAN CORPUSCULAR HGB CONC 35 g/dl (31.0-36.0); MEAN CORPUSCULAR VOLUME 98 fL (82-100); MONOCYTES # (AUTO) 0.5 /CMM (0.1-1.30); MONOCYTES % (AUTO) 5.9 % (2.0-12.0); NEUTROPHILS # (AUTO) 5.8 /CMM (1.8-8.9); NEUTROPHILS % (AUTO) 67.6 % (43.0-81.0); PLATELET COUNT (AUTO) 306 /CMM (150-450); RDW COEFFICIENT OF VARIATION 13.5 (11.5-15.0); RED BLOOD CELL COUNT(AUTO) 2.51 MIL/uL (4.0-5.2); WHITE BLOOD COUNT (AUTO) 8.5 K/uL (4.3-11.0)
[2017-11-05 12:39] LABS: CALCIUM, SERUM 8.6 mg/dL (8.5-10.1); POTASSIUM 5.9 mmol/L (3.5-5.1)
[2017-11-05] MEDS ORDERED: ONDANSETRON HCL/PF 4 MG/2 ML VIAL ONE (12:40)
[2017-11-05] MEDS ORDERED: Calcium Gluconate 1GM/10ML 4.65 MEQ in IV NS 0.9% 50 ML IV ONE (13:00)
[2017-11-05] MEDS ORDERED: ALBUTEROL FS 2.5 MG/3 ML VIAL.NEB NEB ONE (13:00)
[2017-11-05] MEDS ORDERED: INSULIN REGULAR, HUMAN 100 UNIT/ML 10 ML VIAL IV ONE (13:00)
[2017-11-05] MEDS ORDERED: DEXTROSE 50%-WATER 50 ML DISP.SYRIN IVP ONE (13:00)
[2017-11-05] MEDS ORDERED: ONDANSETRON HCL/PF - ER 4 MG/2 ML VIAL IV ONE (13:00)
[2017-11-05] MEDS ORDERED: LEVO500T90 PO (13:22)
[2017-11-05] MEDS ORDERED: DEXL60CA3 PO (13:22)
[2017-11-05] MEDS ORDERED: INSULIN REGULAR, HUMAN 100 UNIT/ML 10 ML VIAL ONE (13:24)
[2017-11-05] MEDS ORDERED: INFANT DEXTROSE 25%-WATER 10 ML DISP.SYRIN ONE (13:24)
[2017-11-05] MEDS ORDERED: Calcium Gluconate 0.465 MEQ/ML VIAL IV ONE (13:24)
--- NOTE | 2017-11-05 13:25 | NUR ---
CALLED [facility] NE[facility], DIESEL ENGINE I PIPE FITTER WAS PAGED.
[2017-11-05] MEDS ORDERED: DEXTROSE 50%-WATER 50 ML DISP.SYRIN ONE (13:26)
--- NOTE | 2017-11-05 13:29 | NUR ---
REGULAR INSULIN 10 UNITS IVP GIVEN. DOSE VERIFIED W/ BASHIR JOHNSON. INITIAL BLOOD SUGAR 168.
[2017-11-05] MEDS ORDERED: ALBUTEROL FS 2.5 MG/3 ML VIAL.NEB ONE (13:50)
--- NOTE | 2017-11-05 14:19 | NUR ---
REPORT GIVEN TO JUAN MANUEL. PT TRANSFERED TO FLOOR. STABLE COND.
[2017-11-05 14:57] VITALS: BP 130/40
--- NOTE | 2017-11-05 14:59 | NUR ---
MS RN RECEIVED A NEW ADMISSION FROM ER, PATIENT IS AWAKE,ALERT,ORIENTED X4,NOT IN ANY FORM OF DISTRESS, RESPIRATIONS, EVEN AND UNLABORED,NO SOB NOTED. CAME IN W/ DX OF HYPERKALEMIA, HD PATIENT, LAST HD YESTERDAY.LUNGS ARE CLEAR,ABDOMEN SOFT,POSITVE BOWEL SOUNDS, DENIES PAIN AT THIS TIME, WILL MONITOR PATIENT.
[2017-11-05] MEDS ORDERED: DEXTROSE 50%-WATER 50 ML DISP.SYRIN IV PRN (15:00)
[2017-11-05] MEDS ORDERED: ACETAMINOPHEN 325 MG TABLET PO PRN (15:00)
[2017-11-05] MEDS ORDERED: ONDANSETRON HCL/PF 4 MG/2 ML VIAL IV PRN (15:00)
[2017-11-05] MEDS ORDERED: hydrALAZINE HCL 25 MG TABLET PO PRN (15:00)
--- NOTE | 2017-11-05 15:05 | NUR ---
MS RN PATIENT COMPLAIN OF WEAKNESS, CHESK BS - 0NLY 27, GAVE JUICES AND SWEETS, REPORTED TO CHARGE NURSE TO OVERRIDE D50 IV.
--- NOTE | 2017-11-05 15:07 | NUR ---
MS RN BS WENT UP TO 160, NO DISTRESS NOTED.
[2017-11-05 16:00] VITALS: BP 130/40
--- NOTE | 2017-11-05 18:00 | NUR ---
ms rn bs - 199 - held coverage for now, patient has a previous bs of 27 this pm.
[2017-11-05] MEDS: BLOOD SUGAR DIAGNOSTIC 1 EACH STRIP IN SCH ×2 (18:23→22:42)
--- NOTE | 2017-11-05 19:06 | NUR ---
ms rn called nephro for med recon.
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
[2017-11-05 20:00] VITALS: BP 107/49
--- NOTE | 2017-11-05 20:00 | NUR ---
FINANCIAL REPORTING SPECIALIST NOTE BEGAN DIALYSIS. PATIENT STABLE. TOLERATING WELL AT THIS TIME.
--- NOTE | 2017-11-05 20:30 | NUR ---
PRODUCTION HARDENER NOTE LEFT MESSAGE FOR FOR MED RECON.
--- NOTE | 2017-11-05 22:00 | NUR ---
CRM MARKETING SPECIALIST NOTE HD COMPLETE. VITAL SIGNS STABLE. 1 L OUT.
[2017-11-05] MEDS: INSULIN REGULAR, HUMAN 100 UNIT/ML 3 ML VIAL SQ PRN (22:43)
[2017-11-06] VITALS (8 sets, daily range): BP systolic 113–151; BP diastolic 54–80
--- NOTE | 2017-11-06 06:23 | NUR ---
REFORMATORY ATTENDANT NOTE PATIENT STABLE. BLOOD SUGAR 185. WILL PROVIDE INSULIN PER SLIDING SCALE. ALL NEEDS MET AND ATTENDED TO. WILL ENDORSE TO DAY SHIFT FOR DIEUDONNE.
[2017-11-06] MEDS: BLOOD SUGAR DIAGNOSTIC 1 EACH STRIP IN SCH ×4 (06:43→22:28)
[2017-11-06 06:46] LABS: CALCIUM, SERUM 8.1 mg/dL (8.5-10.1); PHOSPHORUS 6.1 mg/dL (2.5-4.9); POTASSIUM 5.5 mmol/L (3.5-5.1)
[2017-11-06 06:47] LABS: CREATININE 7.5 mg/dL (0.6-1.3)
[2017-11-06] MEDS: PANTOPRAZOLE 40 MG TABLET.DR PO SCH (07:05)
[2017-11-06] MEDS: INSULIN REGULAR, HUMAN 100 UNIT/ML 3 ML VIAL SQ PRN ×2 (07:05→12:12)
--- NOTE | 2017-11-06 07:05 | NUR ---
RN NOTES PT IS LAYING DOWN IN BED, RESTING COMFORTABLY. IV ON R HAND INTACT AND SL. PT ON RA, RESPIRATIONS ARE EVEN AND UNLABORED. TELE READING IS SR, NO SIGNS OF DISTRESS NOTED. SAFETY MEASURES ARE IN PLACE, CALL LIGHT IS IN REACH. WILL CONTINUE TO MONITOR.
--- NOTE | 2017-11-06 09:00 | NUR ---
RN NOTES PT SHOWS CONCERN FOR NOT GETTING REGULAR HOME MEDICATIONS IN THE AM. EXPLAINED TO PT THAT THE DOCTOR HAS BEEN NOTIFIED MULTIPLE TIMES BY PREVIOUS SHIFTS TO DO MED RECON AND THAT RN IS UNABLE TO GIVE MEDICATIONS UNTIL DOCTOR HAS PUT IN ORDERS. WILL CONTACT MD FOR FOLLOW UP ON MEDICATIONS TO CONTINUE.
--- NOTE | 2017-11-06 09:40 | NUR ---
RN NOTES SPOKE WITH MD ABOUT CONTINUING MEDICATIONS. MD STATED SHE GAVE ER ORDERS TO CONTINUE ALL MEDICATIONS. MED RECON LIST SENT TO PHARMACY TO CONTINUE MEDICATIONS. MADE PT AWARE THAT ORDERS WERE SENT TO PHARMACY AND WOULD BE ABLE TO GET MEDICATIONS DUE ONCE VERIFIED. PT VERBALIZED UNDERSTANDING.
[2017-11-06] MEDS ORDERED: CLONIDINE HCL 0.1 MG TABLET PO PRN (10:30)
[2017-11-06] MEDS: LEVOFLOXACIN (500MG) 500 MG TABLET PO SCH (11:24)
[2017-11-06] MEDS: LISINOPRIL (20MG) 20 MG TABLET PO SCH (11:24)
[2017-11-06] MEDS: METOPROLOL SUCCINATE 50 MG TAB.SR.24H PO SCH (11:25)
--- NOTE | 2017-11-06 11:30 | NUR ---
RN NOTES TOPROL-XL DOSE 200MG. ACCIDENTALLY ONLY PULLED OUT 50MG FROM OMNICELL. ANOTHER 150MG OF TOPROL-XL TAKEN OUT OF OMNICELL TO GIVE COMPLETE DOSE.
[2017-11-06 11:56] LABS: HEMATOCRIT 22 % (33-45); HEMOGLOBIN 7.6 g/dL (11.5-14.8); MEAN CORPUSCULAR HEMOGLOBIN 34 PG (26.0-33.0); MEAN CORPUSCULAR VOLUME 100 fL (82-100); RED BLOOD CELL COUNT(AUTO) 2.24 MIL/uL (4.0-5.2); WHITE BLOOD COUNT (AUTO) 9.1 K/uL (4.3-11.0)
[2017-11-06 11:57] LABS: BASOPHILS % (AUTO) 0.4 % (0.0-2.0); EOSINOPHILS # (AUTO) 0.3 /CMM (0.0-0.7); EOSINOPHILS % (AUTO) 3.5 % (0.0-6.0); LYMPHOCYTES # (AUTO) 2.2 /CMM (0.8-4.8); LYMPHOCYTES % (AUTO) 24.6 % (20.0-44.0); MEAN CORPUSCULAR HGB CONC 34 g/dl (31.0-36.0); MONOCYTES # (AUTO) 0.7 /CMM (0.1-1.30); MONOCYTES % (AUTO) 7.9 % (2.0-12.0); NEUTROPHILS # (AUTO) 5.8 /CMM (1.8-8.9); NEUTROPHILS % (AUTO) 63.6 % (43.0-81.0); PLATELET COUNT (AUTO) 274 /CMM (150-450); RDW COEFFICIENT OF VARIATION 14.3 (11.5-15.0)
[2017-11-06] MEDS: CALCIUM ACETATE 667 MG TABLET PO SCH ×2 (12:12→17:00)
[2017-11-06] MEDS: SEVELAMER CARBONATE 800 MG TABLET PO SCH ×2 (12:12→17:00)
[2017-11-06] MEDS: INS LISP PROT/INS LISPRO 75/25 100 UNIT/ML VIAL SQ SCH ×2 (12:29→18:00)
[2017-11-06] MEDS ORDERED: EPOETIN ALFA (10,000 UNIT) 10,000 UNIT/ML VIAL SQ ONE (16:00)
[2017-11-06] MEDS: LORAZEPAM 0.5 MG TABLET PO PRN (16:53)
--- NOTE | 2017-11-06 17:50 | NUR ---
RN NOTES PT UNABLE TO RECEIVE 1700 MEDICATIONS ON TIME, CURRENTLY GETTING DIALYSIS. WILL ADMINISTER MEDICATIONS AFTER DIALYSIS IS OVER.
--- NOTE | 2017-11-06 18:00 | NUR ---
RN NOTES PT DECIDED TO EAT DURING DIALYSIS AND REFUSED 1700 MEDICATIONS.
--- NOTE | 2017-11-06 18:42 | NUR ---
RN NOTES PT IS SITTING UP IN BED, AWAKE AND ALERT. PT SAYS SHE DOESNT FEEL WELL. ACCUCHECK SHOWS 87 BLOOD SUGAR. DIALYSIS NURSE DECIDED TO STOP DUE TO PT NOT FEELING WELL WITH 2L OUTPUT. PT ON RA, RESPIRATIONS ARE EVEN AND UNLABORED. IV ON R HAND INTACT AND SL. SAFETY MEASURES ARE IN PLACE, CALL LIGHT IS IN REACH. WILL ENDORSE TO SHIRT CLEANER RN FOR CONTINUITY OF CARE.
--- NOTE | 2017-11-06 18:56 | NUR ---
RN NOTES PT ACCUCHECK WAS 90 AT 1730. RECHECKED AFTER EATING DINNER, ACCUCHECK WAS 87. HUMALOG HELD DUE TO RISK OF HYPOGLYCEMIA.
--- NOTE | 2017-11-06 19:15 | NUR ---
TELE/DIE PRESS OPERATOR; RECEIVED PT'S REPORTS FROM THE DAY SHIFT FOR CONTINUITY OF CARE. AT THIS TIME PT IS AWAKE, ALERT AND ORIENTED X3. I ASKED THE PT HOW SHE IS SHE SAID HAVING PAIN ON HER ABDOMEN AND BACK. DAY SHIFT RN SAID SHE IS AWARE AND SHE WILL GIVE THE PT PAIN PILL. HL ON RH INTACT AND PATENT. AV SHUNT ON DARINEL INTACT WITH DRESSING. BREATHING NON LABORED. BED ON LOWER POSITION AND LOCKED FOR SAFETY. SIDE RAILS X2 ARE UP FOR SAFETY. CALL LIGHT WITHIN REACH. WILL CONTINUE TO MONITOR.
--- NOTE | 2017-11-06 21:25 | NUR ---
TELE/WAD LUBRICATOR; PT SLEEPING AT THIS TIME. PT ON SR76. PT ENDORSED TO THE RN KAYKAY FOR CONTINUITY OF CARE.
--- NOTE | 2017-11-06 21:25 | NUR ---
RN NOTES RECEIVED PT ASLEEP, HOB ELEVATED, ON ROOM AIR AND TOLERATED WELL. NO SIGNS OF DISTRESS AND DISCOMFORT NOTED. IV ACCESS ON RIGHT HAND INTACT. WILL CONTINUE TO MONITOR PT.
--- NOTE | 2017-11-06 22:28 | NUR ---
RN NOTES BLOOD SUGAR CHECKED 104 MG/DL, NO INSULIN COVERAGE PER SLIDING SCALE. WILL CONTINUE TO MONITOR PT.
[2017-11-07] VITALS: BP 146/89
[2017-11-07 04:00] VITALS: BP 132/63
[2017-11-07 06:32] LABS: BASOPHILS % (AUTO) 0.4 % (0.0-2.0); EOSINOPHILS # (AUTO) 0.3 /CMM (0.0-0.7); EOSINOPHILS % (AUTO) 3.2 % (0.0-6.0); HEMATOCRIT 25 % (33-45); HEMOGLOBIN 8.5 g/dL (11.5-14.8); LYMPHOCYTES # (AUTO) 2.4 /CMM (0.8-4.8); LYMPHOCYTES % (AUTO) 25.8 % (20.0-44.0); MEAN CORPUSCULAR HEMOGLOBIN 35 PG (26.0-33.0); MEAN CORPUSCULAR HGB CONC 35 g/dl (31.0-36.0); MEAN CORPUSCULAR VOLUME 100 fL (82-100); MONOCYTES # (AUTO) 0.6 /CMM (0.1-1.30); MONOCYTES % (AUTO) 6.7 % (2.0-12.0); NEUTROPHILS # (AUTO) 5.9 /CMM (1.8-8.9); NEUTROPHILS % (AUTO) 63.9 % (43.0-81.0); PLATELET COUNT (AUTO) 283 /CMM (150-450); RDW COEFFICIENT OF VARIATION 14.3 (11.5-15.0); RED BLOOD CELL COUNT(AUTO) 2.46 MIL/uL (4.0-5.2); WHITE BLOOD COUNT (AUTO) 9.3 K/uL (4.3-11.0)
[2017-11-07] MEDS: BLOOD SUGAR DIAGNOSTIC 1 EACH STRIP IN SCH ×3 (06:42→17:24)
[2017-11-07 06:47] LABS: CALCIUM, SERUM 8.6 mg/dL (8.5-10.1); CREATININE 7.3 mg/dL (0.6-1.3); PHOSPHORUS 6.2 mg/dL (2.5-4.9); POTASSIUM 4.9 mmol/L (3.5-5.1)
--- NOTE | 2017-11-07 06:53 | NUR ---
RN NOTES PT STABLE OVERNIGHT, VITAL SIGNS WNL. GENERALIZED BODY ACHES AT TOLERABLE LEVEL. VOMITED ONCE IN THE MORNING WHICH IS NORMAL TO HER EVERY MORNING PER PT, MANAGED WITH ZOFRAN IV. BLOOD SUGAR CONTROLLED. PLAN OF CARE DISCUSSED WITH PT. ALL NEEDS ATTENDED. WILL ENDORSE TO MORNING RN FOR CONTINUITY OF CARE.
--- NOTE | 2017-11-07 07:05 | NUR ---
RN NOTES PT IS LAYING DOWN IN BED, RESTING COMFORTABLY. PT ON RA, RESPIRATIONS ARE EVEN AND UNLABORED. IV ON R HAND INTACT AND SL. SAFETY MEASURES ARE IN PLACE, CALL LIGHT IS IN REACH. WILL CONTINUE TO MONITOR.
[2017-11-07 07:57] VITALS: BP 139/82
[2017-11-07 08:00] VITALS: BP 139/82
[2017-11-07] MEDS: LEVOFLOXACIN (500MG) 500 MG TABLET PO SCH (08:03)
[2017-11-07] MEDS: SEVELAMER CARBONATE 800 MG TABLET PO SCH ×3 (08:03→17:22)
[2017-11-07] MEDS: PANTOPRAZOLE 40 MG TABLET.DR PO SCH (08:03)
[2017-11-07] MEDS: CALCIUM ACETATE 667 MG TABLET PO SCH ×3 (08:03→17:21)
[2017-11-07] MEDS: METOPROLOL SUCCINATE 50 MG TAB.SR.24H PO SCH (08:04)
[2017-11-07] MEDS: LISINOPRIL (20MG) 20 MG TABLET PO SCH (08:04)
[2017-11-07] MEDS: INS LISP PROT/INS LISPRO 75/25 100 UNIT/ML VIAL SQ SCH ×3 (08:09→17:24)
[2017-11-07] MEDS ORDERED: CINACALCET HCL 30 MG TABLET PO SCH (09:00)
[2017-11-07] MEDS ORDERED: PROCHLORPERAZINE EDISYLATE 10 MG/2 ML VIAL IVP PRN (10:30)
[2017-11-07 16:00] VITALS: BP_SYST 140; BP_DIAS 71; BP_DIAS 78
[2017-11-07] MEDS: LORAZEPAM 0.5 MG TABLET PO PRN (17:22)
--- NOTE | 2017-11-07 18:37 | NUR ---
RN NOTES PT IS RESTING IN BED COMFORTABLY, AWAKE AND ALERT. PT ON RA, RESPIRATIONS ARE EVEN AND UNLABORED. IV ON R HAND INTACT AND SL. ALL MEDS WERE GIVEN ORDERED AND PT NEEDS MET. ATIVAN GIVEN @ 1700 FOR ANXIETY. 1730 ACCUCHECK WAS 122, HUMALOG 30 UNITS GIVEN SCHEDULED. PT DENIES ANY PAIN AT THIS TIME OR SHOWS SIGNS OF DISTRESS. Addendum: 11/07/17 at 1839 by JAILYN HALL RN SAFETY MEASURES ARE IN PLACE, CALL LIGHT IS IN REACH. WILL ENDORSE TO EXECUTIVE CHEF RN FOR CONTINUITY OF CARE.
--- NOTE | 2017-11-07 19:20 | NUR ---
MS/LOAN DOCUMENTATION SPECIALIST; RECEIVED PT IN BED AWAKE, ALERT AND ORIENTED X 4. BREATHING NON LABORED AND EVEN. DENIES PAIN. HL ON RT HAND INTACT. AV SHUNT ON DARNIEL INTACT. PT. SAID SHE WANTS TO GO HOME NOW. SHE SAID SHE FEEL BETTER AND ALSO SHE SAID HER KID IS CRYING . SHE ALSO SHE WILL HAVE HER DIALYSIS TOMORROW IN THE CLINIC AND THEY WILL GIVE ME EPOGEN THER. I TOLD THE PT I WILL INFORM MY CHARGE NURSE AND CALL YOUR DOCTOR. PT SAID I AM WILLING TO GO HOME AMA.
--- NOTE | 2017-11-07 19:50 | NUR ---
MS/CUSTOMER RELATIONS COORDINATOR; I INFORMED CHARGE NURSE DONMartha THAT PT WANTS TO GO HOME. SHE TO TELL THE PT THAT SHE IS HAVING HD TOMORROW AND ALSO HER H/H ARE LOW . I TOLD ZENIA THAT PT INSISTED TO GO HOME. SO SHE SAID CALL
--- NOTE | 2017-11-07 19:55 | NUR ---
MS/DISTRIBUTOR OF DIRECTORIES; I CALLED DR. ACUNA AND I TOLD HIM THE WANTS TO HOME NOW, ALSO I TOLD HIM THIS PT IS DIALYSIS PT. DR. ACUNA SAID I DON'T KNOW THE PT. AND IF THE CAN GO HOME TOMORROW AND THE DOCTOR WILL CHECK HER OR IF PT. INSIST TO GO HOME SHE CAN GO HOME AGAINST MEDICAL ADVICE. I TOLD THE CHARGE NURSE OF WHAT DR. ACUNA SAID. SO I TOLD THE PT THAT DR. ACUNA SAID IF SHE CAN GO HOME TOMORROW AND SAY THE DOCTOR OR GO AMA. PT STILL INSISTED TO GO AMA. PT'S DAUGHTER CHANDA WITH HER IN THE ROOM AND SHE EVEN ADVICE HER TO STAY BUT CHANDA SAID MY MOM IS ALWAYS LIKE THAT.
[2017-11-07 20:00] VITALS: BP 143/98
--- NOTE | 2017-11-07 20:10 | NUR ---
MS/ROLLOFF TRUCK DRIVER; PT SIGNED THE AMA FORM CONSENT. HL REMOVED.
--- NOTE | 2017-11-07 20:15 | NUR ---
MS/DELI DEPARTMENT MANAGER; PT LEFT THE FLOOR WITH DAUGHTER CHANDA WALKING TO THE LOBBY. REFUSED TO BE WHEELED DONE. PT SAID SHE HAS HER CAR.
[2017-11-08] MEDS ORDERED: EPOETIN ALFA (10,000 UNIT) 10,000 UNIT/ML VIAL IV ONE (13:00)
[2017-11-11] MEDS ORDERED: Medication Not On Formulary EA (Exenatide Microspheres (Bydureon Pen) 2 MG) SQ SCH (09:00)
== END 2017-11-07 20:15 | disposition left against medical advice (07) | DRG 640 ==
LOC: ER 12:34 → TELE 13:50 → MED 11-07 08:11
PROVIDERS: ADMIT Internal Medicine Nephrology; ATTEND Internal Medicine Nephrology
PROC: 5A1D70Z Performance of Urinary Filtration, Intermittent, Less than 6 Hours Per Day (ICD-10-PCS; principal; 2017-11-05)
PROC: 5A1D70Z Performance of Urinary Filtration, Intermittent, Less than 6 Hours Per Day (ICD-10-PCS; 2017-11-06)
DX: E87.5 Hyperkalemia (principal); N18.6 End stage renal disease; E11.22 Type 2 diabetes mellitus with diabetic chronic kidney disease; I12.0 Hypertensive chronic kidney disease with stage 5 chronic kidney disease or end stage renal disease; D64.9 Anemia, unspecified; E78.5 Hyperlipidemia, unspecified; K21.9 Gastro-esophageal reflux disease without esophagitis; K52.9 Noninfective gastroenteritis and colitis, unspecified; Z79.4 Long term (current) use of insulin; E83.9 Disorder of mineral metabolism, unspecified; Z99.2 Dependence on renal dialysis
CPT/HCPCS: 36415; 80048-TC; 82962-TC; 83735-TC; 84100-TC; 85025-TC; 87081-TC; 90935-TC; A4216; A4606; J0610; J0780; J0885; J1815; J2405; J3490; J7030; Z7610

== ENCOUNTER 2017-12-14 12:33 | Emergency (ER) | payer MEDICARE, MEDICAID ==
[~2017-12-14] VITALS: Ht 149.9 cm; Wt 97.5 kg
[~2017-12-14 12:33] MED LIST changes: +DEXL60CA3 PO; -FURO40TA5 PO; +LEVO500T90 PO
--- NOTE | 2017-12-14 12:33 | NUR ---
C/O EPIGASTRIC PAIN +N/V SINCE 3 AM TODAY .ESRD MWF LAST DIALYSIS 12/13/17. PLACED ON MONITOR. AWAITING MD ORDER
[2017-12-14] MEDS ORDERED: ONDANSETRON HCL/PF 4 MG/2 ML VIAL ONE (12:56)
[2017-12-14] MEDS ORDERED: ONDANSETRON HCL/PF 4 MG/2 ML VIAL IVP ONE (13:00)
[2017-12-14 13:28] LABS: BASOPHILS # (AUTO) 0.2 /CMM (0.0-0.2); BASOPHILS % (AUTO) 2.2 % (0.0-2.0); EOSINOPHILS # (AUTO) 0.3 /CMM (0.0-0.7); EOSINOPHILS % (AUTO) 3.3 % (0.0-6.0); HEMATOCRIT 35 % (33-45); HEMOGLOBIN 11.7 g/dL (11.5-14.8); LYMPHOCYTES # (AUTO) 2.3 /CMM (0.8-4.8); LYMPHOCYTES % (AUTO) 24.4 % (20.0-44.0); MEAN CORPUSCULAR HEMOGLOBIN 36 PG (26.0-33.0); MEAN CORPUSCULAR HGB CONC 34 g/dl (31.0-36.0); MEAN CORPUSCULAR VOLUME 108 fL (82-100); MONOCYTES # (AUTO) 0.6 /CMM (0.1-1.30); MONOCYTES % (AUTO) 6.8 % (2.0-12.0); NEUTROPHILS # (AUTO) 6.1 /CMM (1.8-8.9); NEUTROPHILS % (AUTO) 63.3 % (43.0-81.0); PLATELET COUNT (AUTO) 274 /CMM (150-450); RDW COEFFICIENT OF VARIATION 17.6 (11.5-15.0); RED BLOOD CELL COUNT(AUTO) 3.22 MIL/uL (4.0-5.2); WHITE BLOOD COUNT (AUTO) 9.5 K/uL (4.3-11.0)
[2017-12-14 13:37] LABS: POTASSIUM 5.3 mmol/L (3.5-5.1)
[2017-12-14 13:38] LABS: CREATININE 8.7 mg/dL (0.6-1.3)
--- NOTE | 2017-12-14 13:50 | NUR ---
PT KAYLEIGH SHRESTHA EMERGENCY CARE ATTENDANT AWARE ON DIALYSIS
--- NOTE | 2017-12-14 14:06 | NUR ---
Patient discharged to home in stable condition. Written and verbal after care instructions given. Patient verbalizes understanding of instruction.
--- NOTE | 2017-12-14 14:06 | NUR ---
IV removed. Catheter intact and site benign. Pressure and 4x4 applied to site. No bleeding noted.
[2017-12-14 14:09] VITALS: BP 150/85
== END 2017-12-14 14:10 | disposition home or self-care (01) ==
LOC: ER 12:34
DX: R11.2 Nausea with vomiting, unspecified (principal); E87.5 Hyperkalemia; I12.0 Hypertensive chronic kidney disease with stage 5 chronic kidney disease or end stage renal disease; E10.22 Type 1 diabetes mellitus with diabetic chronic kidney disease; N18.6 End stage renal disease; Z79.4 Long term (current) use of insulin; Z99.2 Dependence on renal dialysis; Z88.1 Allergy status to other antibiotic agents
CPT/HCPCS: 36415; 71045-TC; 80048-TC; 85025-TC; A4606; J2405; Z7610

== ENCOUNTER 2018-03-05 14:52 | Emergency (ER) | payer MEDICARE, MEDICAID ==
[~2018-03-05] VITALS: Ht 149.9 cm; Wt 99.8 kg
--- NOTE | 2018-03-05 15:03 | NUR ---
PT TO ED CO FEELING DIZZY AND WEAK,TIRED X 2 WEEKS. COUGH X 1 WEEK. PATIENT ON HD-- LAST HD 2 DAYS AGO, MISSED TODAY. PATIENT IS AWAKE AND ALERT, SKIN IS WARM TO TOUCH AND NON DIAPHORETIC. PATIENT IS AFEBRILE. VSS
[2018-03-05 15:34] LABS: BASOPHILS % (AUTO) 0.5 % (0.0-2.0); EOSINOPHILS % (AUTO) 3.3 % (0.0-6.0); HEMATOCRIT 27 % (33-45); HEMOGLOBIN 9.1 g/dL (11.5-14.8); LYMPHOCYTES # (AUTO) 1.5 /CMM (0.8-4.8); MEAN CORPUSCULAR HEMOGLOBIN 34 PG (26.0-33.0); MEAN CORPUSCULAR HGB CONC 33 g/dl (31.0-36.0); MEAN CORPUSCULAR VOLUME 102 fL (82-100); MONOCYTES # (AUTO) 0.4 /CMM (0.1-1.30); MONOCYTES % (AUTO) 5.5 % (2.0-12.0); NEUTROPHILS # (AUTO) 5.5 /CMM (1.8-8.9); NEUTROPHILS % (AUTO) 70.7 % (43.0-81.0); PLATELET COUNT (AUTO) 239 /CMM (150-450); RDW COEFFICIENT OF VARIATION 14.3 (11.5-15.0); RED BLOOD CELL COUNT(AUTO) 2.68 MIL/uL (4.0-5.2); WHITE BLOOD COUNT (AUTO) 7.7 K/uL (4.3-11.0)
[2018-03-05 15:43] LABS: CALCIUM, SERUM 8.6 mg/dL (8.5-10.1); POTASSIUM 4.8 mmol/L (3.5-5.1)
[2018-03-05 15:45] LABS: CREATININE 12.4 mg/dL (0.6-1.3)
[2018-03-05 15:48] LABS: MAGNESIUM 2.4 mg/dL (1.8-2.4); PHOSPHORUS 5.3 mg/dL (2.5-4.9)
--- NOTE | 2018-03-05 16:06 | NUR ---
PAGED JASON BLUM FOR CONSULT
[2018-03-05 16:17] VITALS: BP 168/78
--- NOTE | 2018-03-05 16:21 | NUR ---
Patient discharged to home in stable condition. Written and verbal after care instructions given. Patient verbalizes understanding of instruction.IV removed. Catheter intact and site benign. Pressure and 4x4 applied to site. No bleeding noted.
== END 2018-03-05 16:22 | disposition home or self-care (01) ==
LOC: ER 14:54
DX: N17.8 Other acute kidney failure (principal); I12.0 Hypertensive chronic kidney disease with stage 5 chronic kidney disease or end stage renal disease; N18.6 End stage renal disease; E83.39 Other disorders of phosphorus metabolism; D63.1 Anemia in chronic kidney disease; R53.1 Weakness; E11.22 Type 2 diabetes mellitus with diabetic chronic kidney disease; E78.5 Hyperlipidemia, unspecified; Z98.890 Other specified postprocedural states; Z90.49 Acquired absence of other specified parts of digestive tract; Z99.2 Dependence on renal dialysis; Z87.19 Personal history of other diseases of the digestive system; Z88.1 Allergy status to other antibiotic agents; Z79.4 Long term (current) use of insulin; Z79.899 Other long term (current) drug therapy
CPT/HCPCS: 36415; 71045-TC; 80048-TC; 83735-TC; 84100-TC; 85025-TC; 85730-TC; A4606; Z7610

== ENCOUNTER 2018-06-03 17:43 | Emergency (ER) | payer MEDICARE, MEDICAID ==
[~2018-06-03] VITALS: Ht 149.9 cm; Wt 100.7 kg
[~2018-06-03 17:43] MED LIST changes: +INSU100V32 SQ; -INSU10VI4 SQ
[2018-06-03] MEDS ORDERED: CLONIDINE HCL 0.1 MG TABLET ONE (18:34)
[2018-06-03 18:37] LABS: BASOPHILS % (AUTO) 0.5 % (0.0-2.0); EOSINOPHILS % (AUTO) 4.7 % (0.0-6.0); HEMATOCRIT 33 % (33-45); HEMOGLOBIN 11.1 g/dL (11.5-14.8); LYMPHOCYTES % (AUTO) 21.1 % (20.0-44.0); MEAN CORPUSCULAR HGB CONC 34 g/dl (31.0-36.0); MEAN CORPUSCULAR VOLUME 100 fL (82-100); MONOCYTES % (AUTO) 6.1 % (2.0-12.0); NEUTROPHILS % (AUTO) 67.6 % (43.0-81.0); PLATELET COUNT (AUTO) 274 /CMM (150-450); RDW COEFFICIENT OF VARIATION 12.4 (11.5-15.0); RED BLOOD CELL COUNT(AUTO) 3.28 MIL/uL (4.0-5.2)
[2018-06-03 18:38] LABS: LYMPHOCYTES # (AUTO) 1.9 /CMM (0.8-4.8); MONOCYTES # (AUTO) 0.5 /CMM (0.1-1.30); NEUTROPHILS # (AUTO) 6.2 /CMM (1.8-8.9)
[2018-06-03] MEDS: CLONIDINE HCL 0.1 MG TABLET PO ONE (18:42)
[2018-06-03 18:52] LABS: ALBUMIN 3.7 g/dL (3.4-5.0); BILIRUBIN,TOTAL 0.2 mg/dL (0.2-1.0); CALCIUM, SERUM 8.9 mg/dL (8.5-10.1); POTASSIUM 4.2 mmol/L (3.5-5.1); TOTAL PROTEIN, SERUM 7.6 g/dL (6.4-8.2)
[2018-06-03 18:55] LABS: CREATININE 12.1 mg/dL (0.6-1.3)
--- NOTE | 2018-06-03 19:07 | NUR ---
drops of urine noted on collection bag. made aware. Leg bag given to lab for UA. Hand off to RN- Jonatan
--- NOTE | 2018-06-03 19:13 | NUR ---
RECEIVED REPORT FROM ELIZABETH HOPPER FOR [facility]. PT RESTING IN BED WITH NO S/S OF DISTRESS NOTED. WILL CONTINUE TO MONITOR PT.
--- NOTE | 2018-06-03 21:49 | NUR ---
ASSUMED D/C CARE ONLY AT THIS TIME ON BEHALF OF PRIMARY NURSE MARINE. Patient discharged to home in stable condition. Written and verbal after care instructions given. Patient verbalizes understanding of instruction. Ambulatory with a steady gait
[2018-06-03 21:51] VITALS: BP 159/66
== END 2018-06-03 21:53 | disposition home or self-care (01) ==
LOC: ER 17:45
DX: R10.32 Left lower quadrant pain (principal); I12.0 Hypertensive chronic kidney disease with stage 5 chronic kidney disease or end stage renal disease; E10.22 Type 1 diabetes mellitus with diabetic chronic kidney disease; N18.6 End stage renal disease; Z99.2 Dependence on renal dialysis; Z79.4 Long term (current) use of insulin; Z98.890 Other specified postprocedural states
CPT/HCPCS: 36415; 80048-TC; 80076-TC; 81000-TC; 83690-TC; 84703-TC; 85025-TC; 87086-TC; A4606; Z7610

== ENCOUNTER 2018-07-04 11:48 | Emergency (ER) | payer MEDICARE, MEDICAID ==
[~2018-07-04] VITALS: Ht 149.9 cm; Wt 103.0 kg
--- NOTE | 2018-07-04 11:55 | NUR ---
[facility] [id number] W/ NAUSEA. AOX4.
[2018-07-04 12:24] LABS: EOSINOPHILS % (AUTO) 3.1 % (0.0-6.0); HEMATOCRIT 33 % (33-45); HEMOGLOBIN 11.4 g/dL (11.5-14.8); MEAN CORPUSCULAR HGB CONC 35 g/dl (31.0-36.0); MEAN CORPUSCULAR VOLUME 100 fL (82-100); MONOCYTES % (AUTO) 5.8 % (2.0-12.0); NEUTROPHILS % (AUTO) 70.3 % (43.0-81.0); PLATELET COUNT (AUTO) 288 /CMM (150-450); RED BLOOD CELL COUNT(AUTO) 3.28 MIL/uL (4.0-5.2)
[2018-07-04 12:25] LABS: BASOPHILS # (AUTO) 0.1 /CMM (0.0-0.2); BASOPHILS % (AUTO) 0.8 % (0.0-2.0); LYMPHOCYTES # (AUTO) 1.4 /CMM (0.8-4.8); MONOCYTES # (AUTO) 0.4 /CMM (0.1-1.30); NEUTROPHILS # (AUTO) 4.9 /CMM (1.8-8.9)
[2018-07-04 12:29] LABS: CALCIUM, SERUM 9.2 mg/dL (8.5-10.1); CREATININE 6.4 mg/dL (0.6-1.3); POTASSIUM 4.1 mmol/L (3.5-5.1)
[2018-07-04 12:34] LABS: ALBUMIN 3.6 g/dL (3.4-5.0); BILIRUBIN,DIRECT 0.1 mg/dL (0.0-0.2); BILIRUBIN,TOTAL 0.3 mg/dL (0.2-1.0); TOTAL PROTEIN, SERUM 8.2 g/dL (6.4-8.2)
--- NOTE | 2018-07-04 12:37 | NUR ---
2 RN'S UNABLE TO START IV ACCESS. NOTIFIED DR CAMP. OK TO HOLD IV ACCESS AT THIS TIME.
--- NOTE | 2018-07-04 13:13 | NUR ---
RETAIL SALES DIRECTOR BEDSIDE
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
[2018-07-04] MEDS ORDERED: ACETAMINOPHEN ES 500 MG TABLET PO ONE (14:00)
[2018-07-04] MEDS ORDERED: ACETAMINOPHEN ES 500 MG TABLET ONE (14:30)
[2018-07-04 14:47] LABS: APPEARANCE,URINE Cloudy (CLEAR); BILIRUBIN,URINE Negative (NEGATIVE); BLOOD, URINE Trace-intact Ery/uL (NEGATIVE); COLOR,URINE Other (YELLOW); KETONES,URINE Negative (NEGATIVE); LEUKOCYTE ESTERASE ,URINE Small (NEGATIVE); NITRITE, URINE Negative (NEGATIVE); PH,URINE 8.5 (5.0-8.0); UGLUCOSE 100 MG/DL mg/dL (NEGATIVE); UROBILINOGEN,URINE 0.2 EU/dL (0.2)
[2018-07-04 14:51] LABS: PROTEIN,URINE >300 mg/dl (NEGATIVE)
[2018-07-04 15:01] LABS: BACTERIA,URINE Few /HPF (None Seen); SQUAMOUS EPITHELIAL CELL,UR Many /HPF (None Seen)
--- NOTE | 2018-07-04 15:06 | NUR ---
PT REPORTS THAT HE CAR IS AT [facility] AT [facility] BUT PT IS ABLE TO TAKE THE BUS TO [employer] MANA[facility] HER CAR.
--- NOTE | 2018-07-04 15:18 | NUR ---
Patient discharged to home in stable condition. Written and verbal after care instructions given. Patient verbalizes understanding of instruction. GIVEN COPIES OF LABS AND CT
[2018-07-04 15:20] VITALS: BP 152/68
== END 2018-07-04 15:20 | disposition home or self-care (01) ==
LOC: ER 11:49
DX: R10.32 Left lower quadrant pain (principal); E11.22 Type 2 diabetes mellitus with diabetic chronic kidney disease; I12.0 Hypertensive chronic kidney disease with stage 5 chronic kidney disease or end stage renal disease; N18.6 End stage renal disease; I24.9 Acute ischemic heart disease, unspecified; Z99.2 Dependence on renal dialysis; Z98.890 Other specified postprocedural states; Z88.1 Allergy status to other antibiotic agents; Z79.4 Long term (current) use of insulin
CPT/HCPCS: 36415; 71045; 74176; 80048; 80076; 81001; 83690; 84484; 85025; 85730; 87086; 93005; 99285; A4606; 81000-TC; Z7610

== ENCOUNTER 2018-08-20 17:34 | Inpatient (IN) | payer MEDICARE, MEDICAID ==
[~2018-08-20] VITALS: Ht 149.9 cm; Wt 104.8 kg
--- NOTE | 2018-08-20 17:45 | NUR ---
PT BIB SELF FROM HOME C/O N/V x 3 TODAY AND HEADACHE, ON HD, LAST HD SATURDAY, WITH ELEVATED BP 258/101, PT IS AAOX4, NOT IN RESPIRATORY DISTRESS, KEPT RESTED AND COMFORTABLE.
[2018-08-20] MEDS ORDERED: MORPHINE SULFATE INJ 2 MG/ML DISP.SYRIN IV ONE (18:00)
[2018-08-20] MEDS ORDERED: ONDANSETRON HCL/PF 4 MG/2 ML VIAL IVP ONE (18:00)
[2018-08-20] MEDS ORDERED: CLONIDINE HCL 0.1 MG TABLET ONE (18:12)
[2018-08-20] MEDS ORDERED: CLONIDINE HCL 0.1 MG TABLET PO ONE (18:30)
[2018-08-20] MEDS ORDERED: HYDROCODONE/APAP 10/325MG 1 EA TABLET ONE (18:37)
[2018-08-20] MEDS ORDERED: ONDANSETRON 4 MG TAB.RAPDIS ONE (18:37)
[2018-08-20 18:43] LABS: BASOPHILS # (AUTO) 0.1 /CMM (0.0-0.2); BASOPHILS % (AUTO) 0.7 % (0.0-2.0); EOSINOPHILS % (AUTO) 4.2 % (0.0-6.0); HEMATOCRIT 38 % (33-45); HEMOGLOBIN 12.4 g/dL (11.5-14.8); LYMPHOCYTES # (AUTO) 1.5 /CMM (0.8-4.8); LYMPHOCYTES % (AUTO) 18.4 % (20.0-44.0); MEAN CORPUSCULAR HGB CONC 33 g/dl (31.0-36.0); MEAN CORPUSCULAR VOLUME 104 fL (82-100); MONOCYTES # (AUTO) 0.5 /CMM (0.1-1.30); MONOCYTES % (AUTO) 5.6 % (2.0-12.0); NEUTROPHILS # (AUTO) 5.8 /CMM (1.8-8.9); NEUTROPHILS % (AUTO) 71.1 % (43.0-81.0); PLATELET COUNT (AUTO) 290 /CMM (150-450); RED BLOOD CELL COUNT(AUTO) 3.59 MIL/uL (4.0-5.2); WHITE BLOOD COUNT (AUTO) 8.1 K/uL (4.3-11.0)
--- NOTE | 2018-08-20 18:45 | NUR ---
PT LABS DRAWNED AND SENT TO LAB, AWAITING RESULTS.
--- NOTE | 2018-08-20 18:52 | NUR ---
PT IS WHEELED TO CT SCAN VIA [facility].
[2018-08-20] MEDS ORDERED: ONDANSETRON 4 MG TAB.RAPDIS SL ONE (19:00)
[2018-08-20] MEDS ORDERED: HYDROCODONE/APAP 10/325MG 1 EA TABLET PO ONE (19:00)
[2018-08-20 19:10] LABS: ALBUMIN 4.1 g/dL (3.4-5.0); BILIRUBIN,DIRECT 0.1 mg/dL (0.0-0.2); BILIRUBIN,TOTAL 0.4 mg/dL (0.2-1.0); CALCIUM, SERUM 9.5 mg/dL (8.5-10.1); TOTAL PROTEIN, SERUM 8.2 g/dL (6.4-8.2)
[2018-08-20 19:12] LABS: CREATININE 14.4 mg/dL (0.6-1.3); POTASSIUM 6.3 mmol/L (3.5-5.1)
--- NOTE | 2018-08-20 19:24 | NUR ---
REPORT GIVEN TO ELIZABETH JONES FOR DIEUDONNE, LATEST BP 168/89.
[2018-08-20] MEDS ORDERED: SODIUM POLYSTYRENE SULFONATE 15 G/60 ML BOTTLE PO ONE (19:30)
[2018-08-20] MEDS ORDERED: SODIUM POLYSTYRENE SULFONATE 15 G/60 ML BOTTLE ONE (19:32)
--- NOTE | 2018-08-20 19:33 | NUR ---
CALLED OFFICE OF [facility] NEROLOGY DR ELENA WAS PAGED.
--- NOTE | 2018-08-20 20:03 | NUR ---
FLU SWAB COLLECTED AND SENT TO LAB
--- NOTE | 2018-08-20 20:08 | NUR ---
ADMIT TO 320-2 TELE DX: HYPERTENSIVE EMERGENCY, ESRD ADMITTING DR ELOISA ELENA, PCP Johnny BLUM
--- NOTE | 2018-08-20 20:08 | NUR ---
RECEIVED PT AWAKE ON BED AOX3 ABLETO MAKE KNOWN NEEDS. DENIES PAIN. SATURATION 100%. AFEBRILE. AMBULATE WITH ASSIST. -N/V AT THIST GERALDO. KAYEXALATRE 30G GIVEN ORDERED.
--- NOTE | 2018-08-20 20:40 | NUR ---
EMERGENCY DEPT TECH ADMISSION NOTES RECEIVED PATIENT IN [facility] FROM ER IN STABLE CONDITION. PATIENT ABLE TO AMBULATE TO BED. PATIENT IS ALERT AND ORIENTED X4, VERBALLY RESPONSIVE, ABLE TO MAKE NEEDS KNOWN. BREATHING EVEN AND UNLABORED. NO SOB NOTED. TOLERATING ROOM AIR. NO COMPLAINTS OF PAIN OR DISCOMFORT. NO FACIAL GRIMACING. IV ON THE RIGHT AC G#22 INTACT AND PATENT. SKIN DRY AND WARM TO TOUCH. AFEBRILE. EXPLAINED PROCESS OF ADMISSION. SKIN ASSESSMENT RENDERED - NO SKIN ISSUES NOTED. PATIENT NOTED WITH DARINEL FISTULA INTACT. BELONGINGS ACCOUNTED FOR. ORIENTED TO THE USE OF UNIT AMENITIES. ALL OTHER NEEDS ATTENDED TO. SAFETY MEASURES IN PLACE. CALL LIGHT WITHIN REACH. WILL CONTINUE TO MONITOR.
--- NOTE | 2018-08-20 20:50 | NUR ---
discharge patietn to room 316-2 for continuity ofcare . report given to nayeli JOHNSON to 3W. patient is aware. remained in stable condition upon trasnsfer. all belongings endorsed to nurse and patient.
[2018-08-20 21:29] VITALS: BP 171/83
--- NOTE | 2018-08-20 22:09 | NUR ---
MINK RANCHER NOTES PAGED DR. ELOISA ELENA'S OFFICE AND SPOKE WITH HANK AND INFORMED HER THAT I NEED ADMISSION ORDERS. PER HANK, SHE WILL CONTACT DR. ELENA AND MAKE AWARE. WILL WAIT FOR CALL BACK.
[2018-08-20] MEDS ORDERED: CLONIDINE HCL 0.2 MG TABLET PO PRN (23:00)
--- NOTE | 2018-08-20 23:08 | NUR ---
SKIN DIVER NOTES DR. ELOISA ELENA PAGED BACK WITH ORDERS TO RESUME ALL HOME MEDS, RENAL DIET, CBC AND BMP IN AM. ORDERS NOTED AND CARRIED OUT.
[2018-08-21 00:07] VITALS: BP 188/86
--- NOTE | 2018-08-21 00:07 | NUR ---
FIRE LIEUTENANT NOTES PAGED DR. ELOISA ELENA FOR ORDER CLARIFICATION. PER MED RECON, PATIENT TAKES HUMALOG 30 UNITS SQ THREE TIMES A DAY WITH MEALS, HOWEVER, PATIENT WOULD ADJUST THE INSULIN DOSE DEPENDING ON HER BLOOD SUGAR LEVELS. INFORMED DR. ELENA ABOUT PATIENT'S INSULIN REGIME, WITH ORDERS TO CHANGE TO BLOOD SUGAR CHECK ACHS, REGULAR INSULIN ACHS WITH MILD SLIDING SCALE. ALSO REQUESTED FOR A NAUSEA AND PAIN MEDICATION. PER DR. ELENA, TYLENOL 650MG PO Q6H PRN, AND ZOFRAN 4MG IV Q6H PRN FOR N/V. ORDERS NOTED AND CARRIED OUT.
[2018-08-21] MEDS ORDERED: DEXTROSE 50%-WATER 50 ML DISP.SYRIN IV PRN (00:30)
[2018-08-21] MEDS: CLONIDINE HCL 0.1 MG TABLET PO PRN ×2 (02:25→21:16)
[2018-08-21 04:16] VITALS: BP 182/65
--- NOTE | 2018-08-21 06:09 | NUR ---
TUBE TESTER NOTES CHECKED PATIENT'S BS: 181. PER PATIENT, SHE WOULD LIKE TO HAVE HER INSULIN RIGHT BEFORE BREAKFAST, NOT EARLIER THAN THAT. WILL RECHECK BLOOD SUGAR AGAIN LATER RIGHT BEFORE BREAKFAST. Addendum: 08/21/18 at 0735 by NYASIA CHOI RN ENDORSED TO DAY NURSE VINICIO RN TO RECHECK BLOOD SUGAR AND ADMINISTER INSULIN PRIOR TO EATING BREAKFAST, PER PATIENT'S REQUEST.
--- NOTE | 2018-08-21 06:13 | NUR ---
TRUST MAIL CLERK NOTES PATIENT REFUSED BLOOD DRAW THIS MORNING. OPHTHALMIC TECHNOLOGIST ATTEMPTED ONCE AND WAS UNSUCCESSFUL. PER PATIENT, SHE WANTS HER BLOOD DRAW DURING DIALYSIS. SHE DOES NOT WANT TO GET POKED AGAIN. WILL ENDORSE TO DAY NURSE TO CALL LAB DURING DIALYSIS.
--- NOTE | 2018-08-21 06:49 | NUR ---
RN MS CLOSING NOTES PATIENT RESTING IN BED. NO ACUTE CHANGES THROUGHOUT SHIFT. BREATHING EVEN AND UNLABORED. NO SOB NOTED. TOLERATING ROOM AIR. NO COMPLAINTS OF PAIN OR DISCOMFORT. NO FACIAL GRIMACING. IV SITE ON THE RIGHT AC G#22 INTACT AND PATENT. ALL OTHER NEEDS ATTENDED TO. SAFETY MEASURES IN PLACE. CALL LIGHT WITHIN REACH. WILL ENDORSE TO ONCOMING NURSE FOR DIEUDONNE
--- NOTE | 2018-08-21 07:33 | NUR ---
CAT HOOKER NOTES VERIFIED WITH KITCHEN CLERK PHARMACY REGARDING MEDICATIONS THAT ARE STILL PENDING AFTER BEING RECONCILED. PER NIGHT PHARMACISTS, MORNING PHARMACY WILL FIX IT. ENDORSED TO DAY RN TO F/U.
[2018-08-21 08:00] VITALS: BP 150/70
[2018-08-21] MEDS ORDERED: INS LISP PROT/INS LISPRO 75/25 100 UNIT/ML VIAL SQ SCH (08:00)
--- NOTE | 2018-08-21 08:00 | NUR ---
CATTLE MANAGER AM NOTES PATIENT RESTING IN BED. BREATHING EVEN AND UNLABORED. NO SOB NOTED. C/O LEFT HEEL PAIN.WITH MERE HEEL REDNESS.AFLOAT MERE HEELS WITH PILLOWS.TOLERATING ROOM AIR.TYLENOL 650-MG PO GIVEN FOR PAIN MGT. IV SITE ON THE RIGHT AC G#22 INTACT AND PATENT. 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 WITH BRP WITH STEADY GAIT.CALL LIGHT WITHIN REACH. Addendum: 08/21/18 at 1048 by VINICIO WAKEFIELD RN PLS IGNORE NOTES ABOUT C/O LT HEEL PAIN AND TYLENOL MGT-DOCUMENTED ON THE WRONG PT.
--- NOTE | 2018-08-21 08:20 | NUR ---
METOPROLOL PO MED HELD DUE TO PENDING HEMODIALYSIS PROCEDURE IN 2 HRS PER HD RN.
[2018-08-21] MEDS: SEVELAMER CARBONATE 800 MG TABLET PO SCH ×4 (09:00→18:05)
[2018-08-21] MEDS: BLOOD SUGAR DIAGNOSTIC 1 EACH STRIP IN SCH ×4 (09:00→21:25)
[2018-08-21] MEDS ORDERED: LISINOPRIL (20MG) 20 MG TABLET PO SCH (09:00)
[2018-08-21] MEDS: CINACALCET HCL 30 MG TABLET PO SCH (09:00)
[2018-08-21] MEDS ORDERED: METOPROLOL SUCCINATE 50 MG TAB.SR.24H PO SCH (09:00)
[2018-08-21] MEDS: INSULIN REGULAR, HUMAN 100 UNIT/ML 3 ML VIAL SQ PRN ×3 (09:02→21:26)
[2018-08-21] MEDS: CALCIUM ACETATE 667 MG TABLET PO SCH ×4 (09:05→18:05)
--- NOTE | 2018-08-21 12:00 | NUR ---
PT REFUSED TO EAT LUNCH.BLOOD SUGAR WAS 237.INSULIN HELD AT THIS TIME.PT VERBALIZED THAT SHE WANTS INSULIN WHEN SHE EATS
[2018-08-21 12:39] LABS: APPEARANCE,URINE SL CLOUDY (CLEAR); BILIRUBIN,URINE NEGATIVE (NEGATIVE); BLOOD, URINE TRACE-INTA Ery/uL (NEGATIVE); COLOR,URINE YELLOW (YELLOW); KETONES,URINE NEGATIVE (NEGATIVE); LEUKOCYTE ESTERASE ,URINE NEGATIVE (NEGATIVE); NITRITE, URINE NEGATIVE (NEGATIVE); PROTEIN,URINE 3+ mg/dl (NEGATIVE); UGLUCOSE 1+ mg/dL (NEGATIVE); UROBILINOGEN,URINE 0.2 EU/dL (0.2)
[2018-08-21 12:55] LABS: BACTERIA,URINE Few /HPF (None Seen); SQUAMOUS EPITHELIAL CELL,UR Moderate /HPF (None Seen); WBC,URINE 0-2 /HPF (0-3)
--- NOTE | 2018-08-21 14:00 | NUR ---
CALLED JANNETH,NASH,RN IF WHEN WILL THE HD PROCEDURE BE DONE?JANNETH STATED HEMODIALYSIS PROCEDURE WILL BE DONE BETWEEN 7-8 PM DUE TO HAVING A LOT OF HD PATIENTS TODAY.BP MED METOPROLOL CAN BE GIVEN BUT PT REFUSED TO TAKE THE METOPROLOL.
--- NOTE | 2018-08-21 14:01 | NUR ---
PT STILL REFUSED TO EAT LUNCH AT THIS TIME.HELD INSULIN PER PT'S REQUEST.
[2018-08-21] MEDS: ACETAMINOPHEN 325 MG TABLET PO PRN ×2 (14:24→21:19)
[2018-08-21] MEDS: ONDANSETRON HCL/PF 4 MG/2 ML VIAL IV PRN ×2 (14:27→21:16)
--- NOTE | 2018-08-21 15:56 | NUR ---
PT WANTS HER BLOOD SUGAR AND INSULIN TO BE CHECKED AND GIVEN RIGHT NOW INSPITE OF EXPLAINING THE RISKS AND CONSEQUENCES OF UNDERGOING HYPOGLYCEMIC PT'S BLOOD SUGAR IS 187..
[2018-08-21 16:00] VITALS: BP 149/76
--- NOTE | 2018-08-21 18:47 | NUR ---
PT COMFORTABLY RESTING IN BED C/O VAGINAL ITCH.NOTIFIED DR STEVENSON WITH ORDER FOR LOTRIMIN CR TO APPLY BID AND CARRIED OUT.CALL LIGHT PLACED WITHIN REACH.
--- NOTE | 2018-08-21 19:40 | NUR ---
RN NOTES RECEIVE PT IN THE BED A/O X 4, TELE MONITOR WITH READING OF SB 60. IN STABLE CONDITION, NOT IN DISTRESS, SAFETY MEASURES IN PLACE. WILL CONTINUE TO MONITOR.
[2018-08-21 20:00] VITALS: BP 162/73
--- NOTE | 2018-08-21 20:28 | NUR ---
Met with patient, she is alert and pleasant. States she lives locally with her spouse. She is ambulatory and independent with adl's. Has no DME or homehealth reported. She received [facility]pt HD at [facility] every MWF @ 8:30am. Denies dc planning needs at this time. She plan to return home, family will provide ride. Addendum: 08/21/18 at 2028 by GENNY RUIZ RN Amended: Links added.
[2018-08-21 21:19] LABS: BASOPHILS # (AUTO) 0.1 /CMM (0.0-0.2); EOSINOPHILS % (AUTO) 4.3 % (0.0-6.0); HEMATOCRIT 26 % (33-45); HEMOGLOBIN 8.9 g/dL (11.5-14.8); LYMPHOCYTES # (AUTO) 1.5 /CMM (0.8-4.8); LYMPHOCYTES % (AUTO) 19.2 % (20.0-44.0); MEAN CORPUSCULAR HGB CONC 34 g/dl (31.0-36.0); MEAN CORPUSCULAR VOLUME 103 fL (82-100); MONOCYTES # (AUTO) 0.5 /CMM (0.1-1.30); MONOCYTES % (AUTO) 6.5 % (2.0-12.0); NEUTROPHILS # (AUTO) 5.5 /CMM (1.8-8.9); PLATELET COUNT (AUTO) 287 /CMM (150-450); RED BLOOD CELL COUNT(AUTO) 2.55 MIL/uL (4.0-5.2)
[2018-08-21] MEDS: CLOTRIMAZOLE/BETAMETASONE DIPROPIONATE 15 GM TUBE TP SCH (21:27)
[2018-08-21 21:42] LABS: ALBUMIN 3.5 g/dL (3.4-5.0); BILIRUBIN,TOTAL 0.4 mg/dL (0.2-1.0); CALCIUM, SERUM 8.8 mg/dL (8.5-10.1); POTASSIUM 5.8 mmol/L (3.5-5.1)
[2018-08-21 21:47] LABS: CREATININE 16.1 mg/dL (0.6-1.3)
--- NOTE | 2018-08-21 22:30 | NUR ---
RADHA AND SPOKE TO DR. ORELLANA LAND DEVELOPMENT PROJECT MANAGER OF [employer] RELAYED RECENT K AND RECENT BP OF THE PATIENT ORDERED HYDRALAZINE 10 MG IVP Q6 PRN SBP >160 READ BACK AND VERIFIED ORDERS NOTED AND CARRIED OUT.
[2018-08-21] MEDS ORDERED: hydrALAZINE HCL IV 20 MG VIAL IV PRN ×2 (23:00)
[2018-08-21] MEDS: hydrALAZINE HCL IV 20 MG VIAL IV PRN (23:05)
--- NOTE | 2018-08-21 23:53 | NUR ---
S/P DIALYSIS OUTPUT 2000L
[2018-08-22] VITALS (9 sets, daily range): BP systolic 135–177; BP diastolic 48–77
[2018-08-22] MEDS: ONDANSETRON HCL/PF 4 MG/2 ML VIAL IV PRN ×3 (05:35→21:34)
[2018-08-22] MEDS: hydrALAZINE HCL IV 20 MG VIAL IV PRN (05:36)
[2018-08-22] MEDS: BLOOD SUGAR DIAGNOSTIC 1 EACH STRIP IN SCH ×4 (05:47→21:02)
[2018-08-22] MEDS: INSULIN REGULAR, HUMAN 100 UNIT/ML 3 ML VIAL SQ PRN ×4 (05:52→21:04)
--- NOTE | 2018-08-22 06:12 | NUR ---
RN CLOSING NOTE PT IN BED RESTING ASLEEP AND EASILY AWAKEN. WITH READING OF SR 71'S IN THE TELE MONITOR. NO S/S OF RESP DISTRESS OR SOB. NO C/O PAIN AT THIS TIME. ALL PT NEEDS ANTICIPATED AND MET. KEPT CLEAN AND DRY AND COMFORT, SAFETY MEASURES IN PLACE, CALL LIGHT WITHIN REACH. WILL ENDORSE TO WELT SEWER FOR DIEUDONNE.
--- NOTE | 2018-08-22 07:20 | NUR ---
TELE/RN OPENING NOTE THE PATIENT IS RECEIVED IN BED. ALERT AND ORIENTED X4. DENIES PAIN AT THIS TIME. IN ROOM AIR AND DENIES SOB. RESPIRATION REGULAR AND UNLABORED. TELE BOX READING IS SR 74. RAC G 22 PATENT AND SALINE LOCKED. BED LOW AND LOCKED. SIDE RAILS UP X3. CALL LIGHT WITHIN REACH. WILL CONTINUE TO MONITOR.
[2018-08-22] MEDS: SEVELAMER CARBONATE 800 MG TABLET PO SCH ×3 (08:00→18:55)
[2018-08-22] MEDS: CALCIUM ACETATE 667 MG TABLET PO SCH ×3 (08:00→18:55)
[2018-08-22] MEDS: CINACALCET HCL 30 MG TABLET PO SCH (09:00)
--- NOTE | 2018-08-22 09:18 | NUR ---
TELE/RN NOTE THE PATIENT HAS COMPLIANT OF HEADACHE 05/28. ASLO, NOTED TO HAVE NASAL CONGESTION. DR BLUM IS MADE AWARE AND NEW ORDERS OF FLONASE 2 PUFFS BID AND NORCO 5/325 1 TAB PO Q8H PRN IS OBTAINED. THE ORDERS ARE READ BACK, VERIFIED. NOTED AND CARRIED OUT. THE PATIENT IS MADE AWARE. WILL ADMINISTERED SOON PHARMACY VERIFIES THE ORDER. FOLLOW UP TO PHARMACY IS MADE.
[2018-08-22] MEDS: PANTOPRAZOLE 40 MG TABLET.DR PO SCH (09:45)
[2018-08-22] MEDS: CLOTRIMAZOLE/BETAMETASONE DIPROPIONATE 15 GM TUBE TP SCH ×2 (09:49→18:57)
[2018-08-22] MEDS ORDERED: METOPROLOL SUCCINATE 50 MG TAB.SR.24H PO ONE (10:00)
--- NOTE | 2018-08-22 10:00 | NUR ---
MS/RN NOTE TOPROL-XL 200 MG NOT ADMINISTERED DUE TO PATIENT HAS NEW ORDER FOR COREG 12.5 MG TO BE ADMINISTERED AT 1000. DR BLUM IS MADE AWARE.
[2018-08-22] MEDS: HYDROCODONE/APAP 5/325MG 1 EACH TABLET PO PRN ×2 (10:03→21:34)
[2018-08-22] MEDS: CARVEDILOL 12.5 MG TABLET PO SCH ×2 (10:03→21:00)
[2018-08-22] MEDS: FLUTICASONE PROPIONATE 16 GM BOTTLE NS SCH ×2 (10:45→18:44)
--- NOTE | 2018-08-22 11:03 | NUR ---
MS/RN NOTE REASSESSED PAIN: THE PATIENT VERBALIZED NORCO 5/325 PO GIVEN WAS EFFECTIVE AND RATED HEADACHE 2/10. THE PATIENT REFUSES OTHER PAIN MEDICATION AT THIS TIME. PATIENT WANTING TO TAKE NAP TO RELIEVE PAIN 2/10. WILL CONTINUE TO MONITOR.
--- NOTE | 2018-08-22 12:04 | NUR ---
MS/RN NOTE THE PATIENT COMPLAINS OF NAUSEA. NO VOMITING AT THIS TIME. HEAD OF BEAD KEPT ELEVATED. ZOFRAN 4 MG IV PUSH IS GIVEN. WILL CONTINUE TO MONITOR.
--- NOTE | 2018-08-22 13:00 | NUR ---
MS/RN NOTE DR BLUM IS MADE AWARE OF TROPONIN LEVEL OF 0.139. PER DR BLUM NO NEW ORDER.
[2018-08-22] MEDS ORDERED: ONDANSETRON HCL/PF 4 MG/2 ML VIAL IV STA ×2 (13:11→16:27)
[2018-08-22] MEDS ORDERED: EPOETIN ALFA (10,000 UNIT) 10,000 UNIT/ML VIAL IV ONE (13:30)
[2018-08-22] MEDS ORDERED: SUMATRIPTAN SUCCINATE 25 MG TABLET PO ONE (13:30)
--- NOTE | 2018-08-22 13:37 | NUR ---
MS/RN NOTE THE PATIENT COMPLAINED OF NAUSEA AND VOMITED CLEAR LIQUID X1. RECEIVED ORDER FROM DR BLUM FOR ZOFRAN 4 MG IV PUSH STAT. THE ORDER NOTED AND CARRIED OUT. THE MEDICATION IS ADMINISTERED. WILL CONTINUE TO MONITOR.
--- NOTE | 2018-08-22 14:07 | NUR ---
MS/RN NOTE NO VOMITING AND THE PATIENT VERBALIZED " NO MORE NAUSEA."
--- NOTE | 2018-08-22 16:42 | NUR ---
MS/RN NOTE PATIENT GOING FOR NM STUDY AND HAS NAUSEA. DR BLUM IS MADE AWARE AND STAT ZOFRAN 4 MG IV PUSH ORDER IS OBTAINED. MEDICATION IS ADMINISTERED. THE PATIENT IS TAKEN ON A W/CHAIR TO STUDY.
--- NOTE | 2018-08-22 18:43 | NUR ---
MS/RN NOTE PER DR BLUM STAT BMP ORDER 08/22/18. NOTED AND CARRIED OUT.
[2018-08-22 19:22] LABS: CALCIUM, SERUM 8.8 mg/dL (8.5-10.1); POTASSIUM 4.6 mmol/L (3.5-5.1)
[2018-08-22 19:25] LABS: CREATININE 13.4 mg/dL (0.6-1.3)
--- NOTE | 2018-08-22 19:31 | NUR ---
RN NOTES RECEIVE PT IN THE BED A/O X 4, ON GOING DIALYSIS. IN STABLE CONDITION, NOT IN DISTRESS, SAFETY MEASURES IN PLACE. WILL CONTINUE TO MONITOR.
[2018-08-22] MEDS: hydrALAZINE HCL 50 MG TABLET PO PRN (21:01)
[2018-08-23 04:00] VITALS: BP 141/79
[2018-08-23] MEDS: BLOOD SUGAR DIAGNOSTIC 1 EACH STRIP IN SCH ×2 (05:39→12:26)
[2018-08-23] MEDS: INSULIN REGULAR, HUMAN 100 UNIT/ML 3 ML VIAL SQ PRN (05:41)
--- NOTE | 2018-08-23 06:07 | NUR ---
RN CLOSING NOTE PT IN BED RESTING ASLEEP AND EASILY AWAKEN. TOLERATING ROOM AIR 99%, NO S/S OF RESP DISTRESS OR SOB. NO C/O PAIN AT THIS TIME. NURSING CARE RENDERED. KEPT CLEAN AND DRY AND COMFORT, SAFETY MEASURES IN PLACE, CALL LIGHT WITHIN REACH. WILL ENDORSE TO LINEN TECH FOR DIEUDONNE.
--- NOTE | 2018-08-23 07:35 | NUR ---
RN OPENING NOTES PT WAS RECEIVED IN BED AT LOWEST AND LOCKED POSITION WITH SIDE RAILS UP X2, A/O X4, BREATHING EVEN AND UNLABORED ON RA, NO S/S OF PAIN OR DISTRESS AT THIS TIME, IV IS PATENT AND INTACT, SAFETY PRECAUTIONS IN PLACE, CALL LIGHT WITHIN REACH, WILL MONITOR ACCORDINGLY
[2018-08-23 08:00] VITALS: BP 186/78
[2018-08-23] MEDS: FLUTICASONE PROPIONATE 16 GM BOTTLE NS SCH (08:27)
[2018-08-23] MEDS: PANTOPRAZOLE 40 MG TABLET.DR PO SCH (08:27)
[2018-08-23] MEDS: CARVEDILOL 12.5 MG TABLET PO SCH (08:28)
[2018-08-23] MEDS: CALCIUM ACETATE 667 MG TABLET PO SCH ×2 (08:29→13:09)
[2018-08-23] MEDS: SEVELAMER CARBONATE 800 MG TABLET PO SCH ×2 (08:29→13:10)
[2018-08-23] MEDS: CINACALCET HCL 30 MG TABLET PO SCH (08:31)
[2018-08-23] MEDS: hydrALAZINE HCL 50 MG TABLET PO PRN (08:34)
[2018-08-23] MEDS: ONDANSETRON HCL/PF 4 MG/2 ML VIAL IV PRN (08:35)
[2018-08-23] MEDS: CLOTRIMAZOLE/BETAMETASONE DIPROPIONATE 15 GM TUBE TP SCH (08:40)
[2018-08-23] MEDS ORDERED: LOSARTAN POTASSIUM 50 MG TABLET PO SCH (09:00)
[2018-08-23] MEDS ORDERED: METO25TA6 PO (09:43)
[2018-08-23] MEDS ORDERED: LOSA50TA3 PO (09:43)
[2018-08-23] MEDS ORDERED: NIFE30TA91 PO (09:43)
[2018-08-23 09:47] VITALS: BP 199/77
[2018-08-23] MEDS: CLONIDINE HCL 0.1 MG TABLET PO PRN (09:47)
--- NOTE | 2018-08-23 11:12 | NUR ---
RN NOTES DIALYSIS BEING DONE AT THIS TIME
--- NOTE | 2018-08-23 12:00 | NUR ---
RN NOTES NO INSULIN GIVEN FOR 1200 BLOOD SUGAR DUE TO PT BEING ON DIALYSIS
[2018-08-23] MEDS: ACETAMINOPHEN 325 MG TABLET PO PRN (12:24)
--- NOTE | 2018-08-23 15:35 | NUR ---
DISCHARGE NOTES PT WAS D/C IN MEDICALLY STABLE CONDITION AT THIS TIME BACK HOME WITH HER IN THEIR PRIVATE CAR. IV AND ID BAND WERE REMOVED. SKIN PHOTOS WERE TAKEN AND DOCUMENTED. D/C PAPERWORK AND BELONGING WAS DISCUSSED WITH THE PATIENT AND SIGNED BY HER. PAPERWORK WAS HANDED TO THE PATIENT. SHE WAS TAKEN DOWN BY WHEELCHAIR BY MARGUERITE FULTON AT THIS TIME. ALL NEEDS WERE ATTENDED TO DURING HER STAY.
== END 2018-08-23 15:50 | disposition home or self-care (01) | DRG 280 ==
LOC: ER 17:36 → TELE 20:19 → MED 08-22 10:24
PROVIDERS: ADMIT Internal Medicine Nephrology; ATTEND Internal Medicine
PROC: 5A1D70Z Performance of Urinary Filtration, Intermittent, Less than 6 Hours Per Day (ICD-10-PCS; principal; 2018-08-21)
PROC: 5A1D70Z Performance of Urinary Filtration, Intermittent, Less than 6 Hours Per Day (ICD-10-PCS; 2018-08-22)
PROC: 5A1D70Z Performance of Urinary Filtration, Intermittent, Less than 6 Hours Per Day (ICD-10-PCS; 2018-08-23)
DX: I16.1 Hypertensive emergency (principal); N18.6 End stage renal disease; I21.A1 Myocardial infarction type 2; Z68.42 Body mass index [BMI] 45.0-49.9, adult; I13.11 Hypertensive heart and chronic kidney disease without heart failure, with stage 5 chronic kidney disease, or end stage renal disease; E11.22 Type 2 diabetes mellitus with diabetic chronic kidney disease; E11.43 Type 2 diabetes mellitus with diabetic autonomic (poly)neuropathy; K31.84 Gastroparesis; G43.909 Migraine, unspecified, not intractable, without status migrainosus; K21.9 Gastro-esophageal reflux disease without esophagitis; Q78.9 Osteochondrodysplasia, unspecified; E87.5 Hyperkalemia; R63.0 Anorexia; E66.01 Morbid (severe) obesity due to excess calories; Z99.2 Dependence on renal dialysis
CPT/HCPCS: 36415; 70450-TC; 71045-TC; 80048-TC; 80053-TC; 80076-TC; 81000-TC; 82962-TC; 83880; 84484-TC; 84702-TC; 84703-TC; 85025-TC; 87081-TC; 87086-TC; 87400; 90935-TC; 93307-TC; A9541; G0378; J0360; J0885; J1815; J2405; Q0162

== ENCOUNTER 2020-01-04 09:00 | Inpatient (IN) | payer MEDICARE, OTHER ==
[~2020-01-04] VITALS: Ht 160 cm; Wt 75.7 kg
--- NOTE | 2020-01-04 08:00 | NUR ---
HEATER FURNACE NOTES RECEIVED PATIENT FROM ER ALERT, ORIENTED X4. NO SOB OR ACUTE DISTRESS NOTED. PATIENT WITH PERIPHERAL IV ON RIGHT WRIST INFILTRATED. INFORMED MD ORDERS RECEIVED FOR MIDLINE. PATIENT WITH AV FISTULA ON LEFT UPPER ARM. PATIENT ORIENTED TO ROOM. CALL LIGHT WITHIN REACH. WILL CONTINUE TO MONITOR. PATIENT COMPLAINS OF PAIN 03/28 SABRA GARCIA WAITING FOR CALL BACK. Addendum: 01/04/20 at 1932 by DIOGENES BEYER RN ERROR WRONG TIME. ACTUAL TIME FOR NOTE IS 4260
[~2020-01-04 09:00] MED LIST changes: -LISI40TA4 PO; +LOSA50TA3 PO; -METO200T49 PO; +METO25TA6 PO; +NIFE30TA91 PO
[2020-01-04] MEDS ORDERED: ONDANSETRON HCL/PF 4 MG/2 ML VIAL ONE ×2 (09:05→10:27)
--- NOTE | 2020-01-04 09:20 | NUR ---
BIB RA C/O NAUSEA, VOMITING, AND DIARRHEA SINCE THIS MORNING. PATIENT A/OX4, BREATHING EVEN AND UNLABORED, NO SOB NOTED, DR. MCCOY AT BEDSIDE FOR EVAL. ATTACHED TO THE SHOE STAINER. NOTED WITH CALIN HETIFFANY.
[2020-01-04] MEDS ORDERED: LORAZEPAM INJ 2 MG/ML VIAL ONE ×2 (09:24→10:27)
[2020-01-04] MEDS ORDERED: LORAZEPAM INJ 2 MG/ML VIAL IV ONE ×2 (09:30→10:30)
[2020-01-04 09:32] LABS: BASOPHILS # (AUTO) 0.1 /CMM (0.0-0.2); BASOPHILS % (AUTO) 0.7 % (0.0-2.0); HEMATOCRIT 29 % (33-45); HEMOGLOBIN 9.8 g/dL (11.5-14.8); LYMPHOCYTES # (AUTO) 0.6 /CMM (0.8-4.8); LYMPHOCYTES % (AUTO) 8.1 % (20.0-44.0); MEAN CORPUSCULAR HGB CONC 34 g/dl (31.0-36.0); MEAN CORPUSCULAR VOLUME 102 fL (82-100); MONOCYTES # (AUTO) 0.3 /CMM (0.1-1.30); MONOCYTES % (AUTO) 4.4 % (2.0-12.0); NEUTROPHILS # (AUTO) 6.7 /CMM (1.8-8.9); NEUTROPHILS % (AUTO) 85.8 % (43.0-81.0); PLATELET COUNT (AUTO) 298 /CMM (150-450); WHITE BLOOD COUNT (AUTO) 7.8 K/uL (4.3-11.0)
[2020-01-04 09:58] LABS: POTASSIUM 6.1 mmol/L (3.5-5.1)
[2020-01-04 09:59] LABS: BILIRUBIN,DIRECT 0.1 mg/dL (0.0-0.2); BILIRUBIN,TOTAL 0.4 mg/dL (0.2-1.0); CALCIUM, SERUM 9.1 mg/dL (8.5-10.1)
[2020-01-04 10:00] LABS: ALBUMIN 3.7 g/dL (3.4-5.0); TOTAL PROTEIN, SERUM 7.9 g/dL (6.4-8.2)
[2020-01-04 10:02] LABS: CREATININE 11.8 mg/dL (0.6-1.3)
[2020-01-04] MEDS ORDERED: MORPHINE SULFATE INJ 4 MG/ML DISP.SYRIN ONE ×2 (10:27→12:04)
[2020-01-04] MEDS ORDERED: MORPHINE SULFATE INJ 2 MG/ML DISP.SYRIN IV ONE ×2 (10:30→12:00)
[2020-01-04] MEDS ORDERED: ONDANSETRON HCL/PF - ER 4 MG/2 ML VIAL IV ONE (10:30)
[2020-01-04] MEDS ORDERED: INSU3INS3 SUBCUT (10:50)
[2020-01-04] MEDS ORDERED: TEMA15CA PO (10:50)
[2020-01-04] MEDS ORDERED: LOSA100T31 PO (10:50)
[2020-01-04] MEDS ORDERED: NIFE-34 PO (10:50)
[2020-01-04] MEDS ORDERED: AMOX500C2 PO (10:50)
[2020-01-04] MEDS ORDERED: SODIUM POLYSTYRENE SULFONATE 15 G/60 ML BOTTLE PO ONE (13:30)
[2020-01-04] MEDS ORDERED: SODIUM POLYSTYRENE SULFONATE 15 G/60 ML BOTTLE ONE (13:39)
[2020-01-04] MEDS ORDERED: ONDANSETRON HCL/PF 4 MG/2 ML VIAL IVP PRN (14:30)
[2020-01-04] MEDS ORDERED: EPOETIN ALFA (20,000 UNIT) 20,000 UNIT/ML VIAL IV ONE (15:30)
--- NOTE | 2020-01-04 15:37 | NUR ---
wheeled patient via gurney accompanied by RN and emt in no distress. RN at bedside to assume care.
[2020-01-04 16:21] LABS: FERRITIN 3159 ng/mL (8-388)
[2020-01-04] MEDS ORDERED: CLONIDINE HCL 0.2 MG TABLET PO PRN (17:00)
[2020-01-04] MEDS ORDERED: TEMAZEPAM 15 MG CAPSULE PO PRN (17:00)
[2020-01-04] MEDS ORDERED: METOPROLOL TARTRATE 25 MG TABLET PO SCH (17:00)
[2020-01-04] MEDS ORDERED: SODIUM POLYSTYRENE SULF. PWD 15 GM UDC PO ONE (17:00)
[2020-01-04] MEDS ORDERED: Medication Not On Formulary EA (Exenatide Microspheres (Bydureon Pen) 2 MG) SQ SCH (17:00)
[2020-01-04] MEDS: MORPHINE SULFATE INJ 2 MG/ML DISP.SYRIN IM PRN ×2 (17:02→21:49)
[2020-01-04] MEDS: CALCIUM ACETATE 667 MG TABLET PO SCH (18:00)
[2020-01-04] MEDS: SEVELAMER CARBONATE 800 MG TABLET PO SCH (18:01)
[2020-01-04] MEDS: ASPIRIN 81 MG TAB.CHEW PO SCH (18:03)
[2020-01-04] MEDS: LOSARTAN POTASSIUM 50 MG TABLET PO SCH (18:04)
[2020-01-04] MEDS: AMOXICILLIN TRIHYDRATE 250 MG CAPSULE PO SCH (18:04)
[2020-01-04] MEDS: METOCLOPRAMIDE HCL 10 MG/2 ML VIAL IV SCH ×2 (18:10→22:56)
[2020-01-04] MEDS: PANTOPRAZOLE 40 MG VIAL IV SCH (19:19)
--- NOTE | 2020-01-04 19:30 | NUR ---
CHILD DEVELOPMENT DIRECTOR OPENING NOTES RECEIVED PATIENT FROM MORNING SHIFT ALERT AND ORIENTED X 3. VERBALLY RESPONSIVE AND ABLE TO FOLLOW DIRECTIONS. BREATHING REGULAR AND UNLABORED ON ROOM AIR. S/P RIGHT UPPER ARM MIDLINE INSERTION; INTACT AND PATENT, FLUSHING WELL WITH NO BLEEDING OR S/S OF INFILTRATION NOTED. ON CARDIAC MONITORING WITH SINUS TACHYCARDIA AT 111bpm. DENIES SUICIDAL IDEATION AT THIS TIME. COMPLAINED OF 5/10 ABDOMINAL PAIN. NON-PHARMACOLOGICAL INTERVENTIONS PROVIDED. BED LOW AND LOCKED ON SEMI FOWLERS POSITION. CALL LIGHT IN REACH. WILL CONTINUE TO MONITOR.
--- NOTE | 2020-01-04 19:33 | NUR ---
BROOM MACHINE OPERATOR NOTES PATIENT IN BED RESTING. PATIENT REPORTS PAIN OF 6/10. PATIENT NOW WITH RIGHT UPPER ARM MIDLINE G18. ALL DUE MEDICATIONS ADMINISTERED. ALL NEEDS MET. ENDORSED CARE TO PM SHIFT.
[2020-01-04 20:00] VITALS: BP 140/91
--- NOTE | 2020-01-04 20:40 | NUR ---
FITNESS/WELLNESS DIRECTOR NOTES ADVISED PATIENT ON HEMODIALYSIS SCHEDULE MOVED TO 2100, VERBALIZED UNDERSTANDING.
[2020-01-04] MEDS: NIFEdipine XL 60 MG TAB PO SCH (20:48)
[2020-01-04] MEDS: INS LISP PROT/INS LISPRO 75/25 100 UNIT/ML VIAL SQ SCH (21:43)
--- NOTE | 2020-01-04 22:00 | NUR ---
COMMISSARY SUPERINTENDENT NOTES HEMODIALYSIS SESSION STARTED AT 2100. COMPLAINED OF 8/10 ABDOMINAL PAIN, MORPHINE 2MG GIVEN VIA IV PUSH. NON-PHARMACOLOGICAL INTERVENTIONS PROVIDED. VITAL SIGNS WNL. WILL CONTINUE TO MONITOR.
--- NOTE | 2020-01-04 22:00 | NUR ---
ADVANCED PRACTICE PROVIDER NOTES BS 325mg/dl, 30UNITS HUMALOG GIVEN SQ. SNACK PROVIDED ON BEDSIDE. WILL CONTINUE TO MONITOR.
[2020-01-05] VITALS (9 sets, daily range): BP systolic 100–195; BP diastolic 67–89
--- NOTE | 2020-01-05 00:40 | NUR ---
CERTIFIED WELDER NOTES S/P HEMODIALYSIS WITH 3000cc OUTPUT. REMAINED ALERT AND ORIENTED X 3, AFEBRILE WITH NO S/S OF DISTRESS OBSERVED. LEFT UPPER ARM HD SITE SEEN WITH MINIMAL BLEEDING, DRESSING INTACT. WILL CONTINUE TO MONITOR.
[2020-01-05] MEDS ORDERED: CLONIDINE HCL 0.1 MG TABLET ONE (01:02)
--- NOTE | 2020-01-05 01:35 | NUR ---
HEAD COOK NOTES NOTED WITH BP 179/86 POST DIALYSIS. CATAPRES 0.1MG (2 TABLETS FOR 0.2MG ) GIVEN BY MOUTH. CATAPRES 0.2MG NOT AVAILABLE IN OMNICELL.
--- NOTE | 2020-01-05 02:35 | NUR ---
VIRTUAL CUSTOMER ASSISTANT NOTES RECHECK BP 154/89 HR 104
--- NOTE | 2020-01-05 04:55 | NUR ---
TOOL MACHINIST NOTES 0430 BLOOD PRESSURE 180/73 HR 105 ALSO COMPLAINED OF ANXIETY. LANDSCAPE MANAGER MARJAN NOTIFIED WITH ORDERS TO GIVE ATIVAN 1MG PO ONE TIME AND CATAPRES 0.1MG PO ONE TIME NOW NOTED AND CARRIED OUT. WILL RECHECK BLOOD PRESSURE AFTER 1HR.
[2020-01-05] MEDS ORDERED: LORAZEPAM 1 MG TABLET PO ONE (05:00)
[2020-01-05] MEDS ORDERED: CLONIDINE HCL 0.1 MG TABLET PO ONE (05:00)
[2020-01-05] MEDS: METOCLOPRAMIDE HCL 10 MG/2 ML VIAL IV SCH ×4 (05:13→22:01)
--- NOTE | 2020-01-05 05:50 | NUR ---
HAND TURNER NOTES RECHECK 1HR POST CLONIDINE ADMINISTRATION: BP 153/71 HR 102
--- NOTE | 2020-01-05 06:40 | NUR ---
FOREST NURSERY WORKER CLOSING NOTES PATIENT IN BED ALERT AND ORIENTED X 3. AFEBRILE WITH NO S/S OF DISTRESS OBSERVED. RIGHT UPPER ARM MIDLINE PATENT AND FLUSHING WELL. MAINTAINED ON CARDIAC MONITORING WITH SINUS TACHYCARDIA AT 108bpm. NO COMPLAINTS OF PAIN/DISCOMFORT OR ANXIETY AT THIS TIME. BED LOW AND LOCKED ON SEMI FOWLERS POSITION. CALL LIGHT IN REACH. WILL ENDORSE TO MORNING SHIFT FOR DIEUDONNE.
[2020-01-05 07:43] LABS: BASOPHILS # (AUTO) 0.1 /CMM (0.0-0.2); BASOPHILS % (AUTO) 0.8 % (0.0-2.0); EOSINOPHILS % (AUTO) 1.5 % (0.0-6.0); HEMATOCRIT 28 % (33-45); HEMOGLOBIN 9.4 g/dL (11.5-14.8); LYMPHOCYTES # (AUTO) 0.7 /CMM (0.8-4.8); MEAN CORPUSCULAR HGB CONC 34 g/dl (31.0-36.0); MEAN CORPUSCULAR VOLUME 102 fL (82-100); MONOCYTES # (AUTO) 0.6 /CMM (0.1-1.30); MONOCYTES % (AUTO) 9.5 % (2.0-12.0); NEUTROPHILS # (AUTO) 5.3 /CMM (1.8-8.9); NEUTROPHILS % (AUTO) 78.2 % (43.0-81.0); PLATELET COUNT (AUTO) 337 /CMM (150-450); WHITE BLOOD COUNT (AUTO) 6.8 K/uL (4.3-11.0)
[2020-01-05] MEDS: METOPROLOL TARTRATE 25 MG TABLET PO SCH ×5 (08:00→23:56)
[2020-01-05] MEDS: LOSARTAN POTASSIUM 50 MG TABLET PO SCH (08:37)
[2020-01-05] MEDS: ASPIRIN 81 MG TAB.CHEW PO SCH (08:37)
[2020-01-05] MEDS: AMOXICILLIN TRIHYDRATE 250 MG CAPSULE PO SCH ×2 (08:38→21:13)
[2020-01-05] MEDS: NIFEdipine XL 60 MG TAB PO SCH ×2 (08:38→21:12)
[2020-01-05] MEDS: CALCIUM ACETATE 667 MG TABLET PO SCH ×3 (08:38→17:55)
[2020-01-05] MEDS: SEVELAMER CARBONATE 800 MG TABLET PO SCH ×4 (08:38→18:05)
[2020-01-05] MEDS: ATORVASTATIN 10 MG TABLET PO SCH (08:38)
[2020-01-05] MEDS: CINACALCET HCL 30 MG TABLET PO SCH (08:38)
[2020-01-05] MEDS: PANTOPRAZOLE 40 MG TABLET.DR PO SCH (08:41)
[2020-01-05] MEDS: INS LISP PROT/INS LISPRO 75/25 100 UNIT/ML VIAL SQ SCH ×2 (08:56→22:07)
[2020-01-05] MEDS: CLONIDINE HCL 0.1 MG TABLET PO PRN (10:31)
--- NOTE | 2020-01-05 10:37 | NUR ---
RN NOTE BP elevated 181/90 HR 99. MD aware. PRN Clonidine given. Will continue to monitor.
[2020-01-05] MEDS ORDERED: IV NS 0.9% 250 ML IV ONE (11:00)
[2020-01-05] MEDS ORDERED: IOHEXOL-350 100 ML VIAL IV ONE (11:00)
[2020-01-05] MEDS ORDERED: NITROGLYCERIN 0.4 MG/TAB BOTTLE ONE (11:03)
[2020-01-05] MEDS ORDERED: METOPROLOL TARTRATE INJ 5 MG/5 ML AMPUL ONE ×2 (11:04→11:40)
--- NOTE | 2020-01-05 11:11 | NUR ---
RN NOTE RETAIL LOAN OFFICER at bedside, patient stated she takes CLONIDINE 0.2mg 4TABS QID. Per MD, to input into med recon and he will continue the medication. Order repeated back and carried out.
[2020-01-05] MEDS: METOPROLOL TARTRATE INJ 5 MG/5 ML AMPUL IVP PRN ×8 (11:28→12:03)
[2020-01-05] MEDS ORDERED: PANTOPRAZOLE 40 MG VIAL IV SCH (11:30)
[2020-01-05] MEDS ORDERED: NITROGLYCERIN 0.4 MG/TAB BOTTLE SL ONE (11:30)
[2020-01-05] MEDS ORDERED: METOPROLOL TARTRATE INJ 5 MG/5 ML AMPUL IVP ONE (11:30)
[2020-01-05] MEDS ORDERED: IV NS 0.9% 500 ML IV PRN (11:30)
[2020-01-05] MEDS ORDERED: METOPROLOL TARTRATE INJ 5 MG/5 ML AMPUL IVP PRN (12:00)
[2020-01-05 12:16] LABS: THYROID STIMULATING HORMONE 2.911 uIU/mL (0.358-3.74)
--- NOTE | 2020-01-05 12:27 | NUR ---
RN NOTE Patient back from CTA. According to Eligio JOHNSON, patient's blood sugar dropped to 50 and he gave D5, juice and sugar. Blood sugar now is 103. Vitals signs BP 166.67 HR 69 O2 95% on RA T 98.0 RR 18. Patient A/O x4, in no acute distress, is sitting at edge of bed and eating lunch. Will continue to monitor.
--- NOTE | 2020-01-05 12:29 | NUR ---
pt in CT room for ct angio cardio..pt felt diaphoretic and lightheaded from bs 50..pt given juice and 0.5 amp d50..lightheadedness and dizziness improved bs now 150 pt awake and alert able to transfer to / with help. pt transported to inpatient room with Eligio JOHNSON and transport after ct angio cardio done bedside report given
[2020-01-05 12:33] LABS: ALBUMIN 3.5 g/dL (3.4-5.0); BILIRUBIN,TOTAL 0.4 mg/dL (0.2-1.0); CALCIUM, SERUM 8.8 mg/dL (8.5-10.1); POTASSIUM 4.3 mmol/L (3.5-5.1); TOTAL PROTEIN, SERUM 7.6 g/dL (6.4-8.2)
[2020-01-05] MEDS ORDERED: DEXTROSE 50%-WATER 50 ML DISP.SYRIN IV ONE (13:17)
--- NOTE | 2020-01-05 16:00 | NUR ---
RN NOTE Report given to Katy JOHNSON for DIEUDONNE.
[2020-01-05] MEDS: PANTOPRAZOLE 40 MG VIAL IV SCH (17:57)
--- NOTE | 2020-01-05 19:13 | NUR ---
SLIDE FORMING MACHINE OPERATOR NOTES PATIENT IN NO ACUTE DISTRESS, NO C/O PAIN AT THIS TIME. CIVIL ENGINEER LAND DEVELOPMENT READING SR 82. SKIN WARM TO TOUCH, IV ACCESS SITE INTACT AND PATENT. PATIENT'S NEEDS ATTENDED, BED ON LOWEST LOCKED POSITION, CALL LIGHT WITHIN REACH. WILL ENDORSE TO ONCOMING NURSE.
--- NOTE | 2020-01-05 19:30 | NUR ---
RN OPEN NOTES PATIENT IS LAYING IN BED. BED IS IN LOWEST LOCKED POSITION WITH SIDE RAILS UP X2. ON RA, NO SOB/ ACUTE RESPIRATORY DISTRESS NOTED. APPEARS COMFORTABLE/ NO COMPLAINTS OF PAIN AT THE MOMENT. CALL LIGHT IS WITHIN REACH. WILL CONTINUE TO MONITOR.
[2020-01-05] MEDS: MORPHINE SULFATE INJ 2 MG/ML DISP.SYRIN IM PRN (20:43)
--- NOTE | 2020-01-05 20:43 | NUR ---
RN NOTES ADMINISTERED MORPHINE 2MG PRN PER PATIENT'S REQUEST. PATIENT RATED HER PAIN AN 8/10 ON LOWER BACK. WILL CONTINUE TO MONITOR.
[2020-01-06] VITALS: BP 186/80
[2020-01-06] MEDS: CLONIDINE HCL 0.1 MG TABLET PO PRN ×2 (00:08→05:17)
--- NOTE | 2020-01-06 00:08 | NUR ---
RN NOTES PATIENT REFUSED METOPROLOL 50MG. STATED IT DIDN'T MAKE HER FEEL GOOD LAST TIME. ADMINISTERED CLONIDINE 0.2MG INSTEAD. BP WAS 186/80 HR 93
--- NOTE | 2020-01-06 00:52 | NUR ---
RN NOTES ADMINISTERED DEXTROSE 50ML PRN. PATIENT'S BLOOD GLUCOSE WAS 47. PATIENT IS A/O X4. PATIENT WAS ALSO GIVEN ORANGE JUICE, CRACKERS AND MILK. WILL CONTINUE TO MONITOR.
[2020-01-06] MEDS ORDERED: DEXTROSE 50%-WATER 50 ML DISP.SYRIN IV PRN (01:00)
[2020-01-06] MEDS ORDERED: INSULIN REGULAR, HUMAN 100 UNIT/ML 3 ML VIAL SQ PRN (01:00)
--- NOTE | 2020-01-06 01:15 | NUR ---
RN NOTES PATIENT'S GLUCOSE IS NOW 165. WILL CONTINUE TO MONITOR.
[2020-01-06 04:00] VITALS: BP 177/91
[2020-01-06] MEDS: METOCLOPRAMIDE HCL 10 MG/2 ML VIAL IV SCH ×2 (04:04→11:00)
[2020-01-06] MEDS ORDERED: KETOROLAC TROMETHAMINE INJ 30 MG/ML VIAL IV PRN (04:30)
[2020-01-06] MEDS ORDERED: HYDROCODONE/APAP 5/325MG 1 EACH TABLET PO PRN (05:00)
--- NOTE | 2020-01-06 05:13 | NUR ---
RN NOTES NOTIFIED DR. AVILA REGARDING PT REFUSING METOPROLOL. PT STATES SHE DOESN'T LIKE THE WAY IT MAKES HER FEEL. ASKED DR IF I SHOULD DISCONTINUE IT. DR. AVILA SAID TO HOLD FOR NOW, PUT REFUSED BY PATIENT AND CHECK WITH DAYTIME DOCTOR IF THEY WANT TO DC IT. MESSAGE NOTED AND CARRIED OUT.
--- NOTE | 2020-01-06 05:17 | NUR ---
RN NOTES PATIENT GIVEN CLONIDINE 0.2MG PRN. BP 177/91 HR 87. WILL CONTINUE TO MONITOR.
[2020-01-06] MEDS: METOPROLOL TARTRATE 25 MG TABLET PO SCH ×3 (06:00→12:00)
--- NOTE | 2020-01-06 06:39 | NUR ---
RN CLOSE NOTES PATIENT IS LAYING IN BED. A/O X4. ON RA, SATURATING AT 96%. NO SOB/ ACUTE RESPIRATORY DISTRESS NOTED. NO COMPLAINTS OF PAIN AT THE MOMENT. ALL DUE MEDS GIVEN. MIDLINE ON R UPPER ARM IS PATENT AND INTACT. BED IS IN LOWEST LOCKED POSITION WITH SIDE RAILS UP X2, SEMI FOWLERS. CALL LIGHT IS WITHIN REACH. WILL ENDORSE TO AM NURSE.
[2020-01-06] MEDS ORDERED: BLOOD SUGAR DIAGNOSTIC 1 EACH STRIP IN SCH (07:30)
[2020-01-06] MEDS: PANTOPRAZOLE 40 MG TABLET.DR PO SCH (07:30)
--- NOTE | 2020-01-06 07:30 | NUR ---
RN OPENING NOTES Patient is resting in bed, A/O x4, showing no sins of acute distress or SOB, stable on RA. GEOVANI midline is clean and intact s/l. DARINEL HD shunt noted. Patient has no complaints of pain at this time. Bed is in lowest position, side rails x3 in upright position, call light is within reach, fall safety and aspiration precautions enforced. Will continue with plan of care.
[2020-01-06 08:00] VITALS: BP 138/78
[2020-01-06] MEDS: AMOXICILLIN TRIHYDRATE 250 MG CAPSULE PO SCH (08:54)
[2020-01-06] MEDS: SEVELAMER CARBONATE 800 MG TABLET PO SCH ×2 (08:54→13:00)
[2020-01-06] MEDS: CALCIUM ACETATE 667 MG TABLET PO SCH ×2 (08:54→13:56)
[2020-01-06] MEDS: CINACALCET HCL 30 MG TABLET PO SCH (08:54)
[2020-01-06] MEDS: hydrALAZINE HCL 50 MG TABLET PO SCH ×2 (08:54→13:56)
[2020-01-06] MEDS: ASPIRIN 81 MG TAB.CHEW PO SCH (08:54)
[2020-01-06] MEDS: ATORVASTATIN 10 MG TABLET PO SCH (08:54)
[2020-01-06] MEDS: LOSARTAN POTASSIUM 50 MG TABLET PO SCH (08:55)
[2020-01-06] MEDS: NIFEdipine XL 60 MG TAB PO SCH (08:55)
[2020-01-06] MEDS: INS LISP PROT/INS LISPRO 75/25 100 UNIT/ML VIAL SQ SCH (09:17)
[2020-01-06 13:56] VITALS: BP 180/85
--- NOTE | 2020-01-06 15:00 | NUR ---
SENIOR PEOPLESOFT DEVELOPER NOTE Patient is medically stable for discharge. Patient refused CTA today Per MD, ok to discharge. Patient is A/O x4, showing no signs of acute distress or SOB, stable on RA. IV line removed, ID band removed. DC instructions provided and patient verbalized understanding. All belongings with patient. Skin assessed and skin remains intact. Patient left unit on wheelchair accompanied by GREENHOUSE TECHNICIAN with taxi voucher to home.
== END 2020-01-06 15:00 | disposition home or self-care (01) | DRG 280 ==
LOC: ER 09:02 → TELE 14:45 → MED 01-06 11:32
PROVIDERS: ADMIT Internal Medicine; ATTEND Nurse Practitioner Acute Care
PROC: 5A1D70Z Performance of Urinary Filtration, Intermittent, Less than 6 Hours Per Day (ICD-10-PCS; principal; 2020-01-04)
PROC: 05HY33Z Insertion of Infusion Device into Upper Vein, Percutaneous Approach (ICD-10-PCS; 2020-01-04)
DX: I21.4 Non-ST elevation (NSTEMI) myocardial infarction (principal); N18.6 End stage renal disease; I12.0 Hypertensive chronic kidney disease with stage 5 chronic kidney disease or end stage renal disease; E87.2 Acidosis; K92.1 Melena; K29.00 Acute gastritis without bleeding; Z99.2 Dependence on renal dialysis; D63.8 Anemia in other chronic diseases classified elsewhere; E11.22 Type 2 diabetes mellitus with diabetic chronic kidney disease; E78.5 Hyperlipidemia, unspecified; E87.5 Hyperkalemia; I16.0 Hypertensive urgency; Z79.4 Long term (current) use of insulin; Z90.49 Acquired absence of other specified parts of digestive tract; F41.9 Anxiety disorder, unspecified; K52.9 Noninfective gastroenteritis and colitis, unspecified; E83.9 Disorder of mineral metabolism, unspecified; Z68.29 Body mass index [BMI] 29.0-29.9, adult; E66.01 Morbid (severe) obesity due to excess calories; Z71.3 Dietary counseling and surveillance
CPT/HCPCS: 36415; 71045-TC; 80048-TC; 80053-TC; 80061-TC; 80076-TC; 82728-TC; 82962-TC; 83540-TC; 83605-TC; 83690-TC; 84439-TC; 84443-TC; 84484-TC; 84702-TC; 85025-TC; 85730-TC; 86706; 87081-TC; 87340; 90935-TC; 93307-TC; C9113; G0378; J0885; J1815; J2060; J2270; J2405; J2765; J3490; J7040; J7050; Q9967